=== PATIENT | male | born 1960 | race Caucasian/White ===

== ENCOUNTER 2016-10-17 06:24 | Emergency (ER) | payer MEDICARE, MEDICAID ==
[2016-10-17 06:42] VITALS: BP 153/81
[2016-10-17] MEDS ORDERED: Diphtheria,Pertussis(Acell),Tetanus Vaccine 0.5 ML SDV IM ONE (07:13)
[2016-10-17] MEDS ORDERED: Bacitracin Oint 1 GM U/D Packet TOP ONE (07:14)
--- NOTE | 2016-10-17 07:34 | EDM.PDOC ---
ED HPI GENERAL MEDICAL PROBLEM - General Chief Complaint: Laceration Stated Complaint: DEEP CUT IN LEFT HAND Time Seen by Provider: 10/17/16 07:12 Source of Information: Reports: Patient History Limitations: Reports: No Limitations - History of Present Illness INITIAL COMMENTS - FREE TEXT/NARRATIVE: Patient presented to the emergency room with a laceration of his left hand. He was cutting a hole was with a knife. The back slipped in a separate laceration 4 cm of the left hand. The patient requires primary closure. No other complications noted in the injury. Onset: Today Duration: Minutes: Location: Reports: Upper Extremity, Left Quality: Reports: Ache Severity: Mild Improves with: Reports: Other (Application of dressing) Worsens with: Reports: None Context: Reports: Activity Associated Symptoms: Reports: No Other Symptoms Treatments [employer]: Reports: Dressing(s) - Related Data Allergies Allergy/AdvReac Type Severity Reaction Status Date / Time clindamycin Allergy Hives Verified 10/17/16 06:38 Home Meds: Home Meds Levothyroxine Sodium [Synthroid] 225 mcg PO ACBREAKFAST 02/27/15 [History] Vitamin E 400 unit PO DAILY 06/11/15 [History] Past Medical History Cardiovascular History: Reports: Blood Clots/VTE/DVT Other Gastrointestinal History: Pancreatic tumor Other Genitourinary History: kidney canCer right nephrectomy 1991. Partial left nephrectomy Other Musculoskeletal History: dislocated right shoulder 1980 Neurological History: Reports: Neuropathy, Peripheral Endocrine/Metabolic History: Reports: Other (See Below) Other Endocrine/Metabolic History: thyroid cancer Oncologic (Cancer) History: Reports: Pancreatic, Thyroid, Other (See Below) Other Oncologic History: kidney - Infectious Disease History Infectious Disease History: Reports: Chicken Pox, Measles, Mumps - Past Surgical History GI Surgical History: Reports: Other (See Below) Other GI Surgeries/Procedures: splenectomy Social & Family History - Tobacco Use Smoking Status *Q: Never Smoker Second Hand Smoke Exposure: No - Caffeine Use Caffeine Use: Reports: None - Recreational Drug Use Recreational Drug Use: No ED ROS GENERAL - Review of Systems Review Of Systems: See Below Constitutional: Reports: No Symptoms HEENT: Reports: No Symptoms Respiratory: Reports: No Symptoms Cardiovascular: Reports: No Symptoms Endocrine: Reports: Fatigue GI/Abdominal: Reports: Abdominal Pain : Reports: Frequency, Urgency Musculoskeletal: Reports: Back Pain Skin: Reports: No Symptoms Neurological: Reports: No Symptoms Psychiatric: Reports: No Symptoms Hematologic/Lymphatic: Reports: No Symptoms ED EXAM, SKIN/RASH Exam: See Below Exam Limited By: No Limitations General Appearance: Alert, WD/WN, No Apparent Distress Eye Exam: Bilateral Eye: Normal Inspection Ears: Normal External Exam, Hearing Grossly Normal Nose: Normal Inspection Throat/Mouth: Normal Inspection, Normal Voice Head: Atraumatic, Normocephalic Neck: Normal Inspection Respiratory/Chest: No Respiratory Distress Cardiovascular: Normal Peripheral Pulses Extremities: Normal Inspection (With the exception of the laceration of the left hand) Neurological: Alert, Oriented Psychiatric: Normal Affect, Normal Mood Skin: Warm, Dry Location, Skin: Upper Extremity, Left, Palms Characteristics: Linear ED SKIN PROCEDURES - Laceration/Wound Repair Left Hand Lac/wound length in cm: 4 Appearance: Linear Distal NVT: neuro & vascular intact, no tendon injury Anesthetic Type: local Local anesthesia - Lidocaine (Xylocaine): 1% plain Local anesthetic volume: 3cc Skin prep: chlorhexidine (hibiciens), saline Exploration/Debridement/Repair: wound explored, no foreign material found Closed with: sutures Suture size: other (5-0 Ethilon) # of sutures: 3 Suture type: interrupted Sterile dressing applied: nurse Complications: No Course - Vital Signs Last Recorded V/S: Last Vital Signs Temp 97.1 F 10/17/16 06:41 Pulse 96 10/17/16 06:41 Resp 16 10/17/16 06:41 BP 153/81 H 10/17/16 06:41 Pulse Ox 98 10/17/16 06:41 - Orders/Labs/Meds Orders: Active Orders 24 hr Category Date Time Status Procedure Tray at Bedside [RC] ASDIRECTED Care 10/17/16 07:14 Ordered Vaccines to be Administered [RC] PER UNIT ROUTINE Care 10/17/16 07:13 Ordered Meds: Medications Discontinued Medications Generic Name Dose Route Start Last Admin Trade Name Freq PRN Reason Stop Dose Admin Bacitracin 1 dose 10/17/16 07:14 Bacitracin Oint 1 Gm TOP 10/17/16 07:15 ONETIME ONE Diphtheria/Tetanus/Acell Pertussis 0.5 ml 10/17/16 07:13 Adacel IM 10/17/16 07:14 .ONCE ONE Lidocaine HCl 5 ml 10/17/16 07:14 Xylocaine-Mpf 1% INJECT 10/17/16 07:15 ONETIME ONE Departure - Departure Time of Disposition: 07:35 Disposition: Home, Self-Care 01 Condition: good Clinical Impression: Laceration of left hand - Discharge Information Instructions: Laceration Care, Adult, [id number] Forms: ED Department Discharge Additional Instructions: Patient seen in the emergency room with laceration of left head. The laceration was repaired with multiple interrupted sutures of 5-0 Ethilon. The wound is cleansed with Hibiclens and saline. One percent Xylocaine was the anesthesia locally infiltrated Bacitracin Band-Aid applied. Patient's keep the wound clean dry and covered her knee unprocessed. Sutures can be removed in 7-10 days. Reevaluation is needed if any signs of infection develop. No antibodies prescribed. - Problem List & Annotations (1) Laceration of left hand SNOMED Code(s): 272294045 Code(s): S61.412A - LACERATION WITHOUT FOREIGN BODY OF LEFT HAND, INIT ENCNTR Status: Acute Priority: Medium Current Visit: Yes Qualifiers: Encounter type: initial encounter Foreign body presence: without foreign body Qualified Code(s): S61.412A - Laceration without foreign body of left hand, initial encounter - Problem List Review Problem List Initiated/Reviewed/Updated: Yes - My Orders Last 24 Hours: My Active Orders 10/17/16 07:13 Vaccines to be Administered [RC] PER UNIT ROUTINE 10/17/16 07:14 Procedure Tray at Bedside [RC] ASDIRECTED - Assessment/Plan Last 24 Hours: My Active Orders 10/17/16 07:13 Vaccines to be Administered [RC] PER UNIT ROUTINE 10/17/16 07:14 Procedure Tray at Bedside [RC] ASDIRECTED
== END 2016-10-17 07:46 | disposition home or self-care (01) ==
LOC: JP.ED 06:24
DX: S61.412A Laceration without foreign body of left hand, initial encounter (principal); Z23 Encounter for immunization; Z88.1 Allergy status to other antibiotic agents; Z79.899 Other long term (current) drug therapy; Z86.718 Personal history of other venous thrombosis and embolism; Z85.850 Personal history of malignant neoplasm of thyroid; Z85.07 Personal history of malignant neoplasm of pancreas; Z90.5 Acquired absence of kidney; Z90.81 Acquired absence of spleen; W26.0XXA Contact with knife, initial encounter
CPT/HCPCS: 12002; 90471; 90715; 99282-25; 99283-25; A4217

== ENCOUNTER 2016-10-25 22:18 | Inpatient (IN) | payer MEDICARE, MEDICAID ==
--- NOTE | 2016-10-25 23:29 | EDM.PDOC ---
[id number] 4d FEVER Time Seen by Provider: 10/25/16 23:15 Source of Information: Reports: Patient, Family History Limitations: Reports: No Limitations - History of Present Illness INITIAL COMMENTS - FREE TEXT/NARRATIVE: 56-year-old male with a history of several types of cancer including pancreatic cancer and kidney cancer, status post splenectomy, developed a sudden onset of chills and fever tonight while fishing. He has chronic lower extremity lymphedema, and developed sudden left leg pain at the same time he developed his fever. He has no shortness of breath, cough, sore throat, nausea or vomiting or abdominal pain. No exposure to other illness he knows of. Onset: Sudden (This evening) Location: Reports: Lower Extremity, Left, Lower Extremity, Right Severity: Moderate Associated Symptoms: Reports: Fever/Chills, Malaise. Denies: Nausea/Vomiting, Shortness of Breath, Weakness denies pain Pain Score (Numeric/FACES): 0 - Related Data Allergies Allergy/AdvReac Type Severity Reaction Status Date / Time clindamycin Allergy Hives Verified 10/25/16 23:53 Home Meds: Home Meds Levothyroxine Sodium [Synthroid] 225 mcg PO ACBREAKFAST 02/27/15 [History] Vitamin E 400 unit PO DAILY 06/11/15 [History] Past Medical History HEENT History: Reports: Impaired Vision Cardiovascular History: Reports: Blood Clots/VTE/DVT Gastrointestinal History: Reports: Other (See Below) Other Gastrointestinal History: Pancreatic tumor Genitourinary History: Reports: Other (See Below) Other Genitourinary History: kidney canCer right nephrectomy 1991. Partial left nephrectomy Other Musculoskeletal History: dislocated right shoulder 1980 Neurological History: Reports: Neuropathy, Peripheral Endocrine/Metabolic History: Reports: Obesity/BMI 30+, Other (See Below) Other Endocrine/Metabolic History: thyroid cancer. lymphedema Oncologic (Cancer) History: Reports: Pancreatic, Thyroid, Other (See Below) Other Oncologic History: kidney - Infectious Disease History Infectious Disease History: Reports: Chicken Pox, Measles, Mumps - Past Surgical History GI Surgical History: Reports: Other (See Below) Other GI Surgeries/Procedures: splenectomy Social & Family History - Tobacco Use Smoking Status *Q: Never Smoker Second Hand Smoke Exposure: No - Caffeine Use Caffeine Use: Reports: Soda, Tea - Recreational Drug Use Recreational Drug Use: No ED ROS GENERAL - Review of Systems Review Of Systems: See Below Constitutional: Reports: Fever, Chills, Malaise HEENT: Reports: No Symptoms Respiratory: Denies: Shortness of Breath, Cough Cardiovascular: Denies: Chest Pain, Palpitations GI/Abdominal: Denies: Abdominal Pain, Nausea, Vomiting : Reports: No Symptoms Skin: Reports: Other (Chronic lymphedema of both lower extremities, thickened skin, erythema and excoriations) Neurological: Denies: Difficulty Walking Psychiatric: Reports: No Symptoms ED EXAM, SEPSIS - Physical Exam Exam: See Below Exam Limited By: No Limitations General Appearance: Alert, No Apparent Distress Eye Exam: Bilateral Eye: Normal Inspection (No jaundice) Throat/Mouth: Normal Inspection Head: Atraumatic Neck: No: Lymphadenopathy (R), Lymphadenopathy (L) Respiratory/Chest: Lungs Clear Cardiovascular: Regular Rate, Rhythm, Tachycardia GI/Abdominal: Soft, Non-Tender Extremities: Pedal Edema (Extreme lower extremity edema, tight erythematous and warm skin bilaterally worse on the left. A few superficial excoriations on both feet, no weeping lesions.) Psychiatric: Normal Affect, Normal Mood Course - Vital Signs Last Recorded V/S: Last Vital Signs Temp 101.9 F H 10/26/16 05:52 Pulse 112 H 10/26/16 03:00 Resp 18 10/26/16 03:00 BP 115/57 L 10/26/16 03:00 Pulse Ox 93 L 10/26/16 03:00 - Orders/Labs/Meds Orders: Active Orders 24 hr Category Date Time Status CULTURE BLOOD [BC] Urgent Lab 10/25/16 23:35 Received CULTURE BLOOD [BC] Urgent Lab 10/25/16 23:45 Received Sodium Chloride 0.9% [Saline Flush] Med 10/25/16 23:31 Active 10 ml FLUSH ASDIRECTED PRN Blood Culture x2 Reflex Set [OM.PC] Urgent Oth 10/25/16 23:23 Ordered Saline Lock Insert [OM.PC] Routine Oth 10/25/16 23:31 Ordered Medication Orders Acetaminophen (Tylenol) 650 mg PO Q4H PRN PRN Reason: Pain (Mild 1-3)/fever Last Admin: 10/26/16 05:52 Dose: 650 mg Albuterol (Proventil Neb Soln) 2.5 mg NEB Q4H PRN PRN Reason: Shortness Of Breath/wheezing Docusate Sodium (Colace) 100 mg PO BID PRN PRN Reason: Constipation Piperacillin Sod/Tazobactam (Sod 3.375 gm/ Sodium Chloride) 50 mls @ 100 mls/ hr IV Q6H [facility] Last Admin: 10/26/16 05:46 Dose: 100 mls/hr Sodium Chloride (Normal Saline) 1,000 mls @ 125 mls/hr IV ASDIRECTED LISA Levothyroxine Sodium (Synthroid) 200 mcg PO ACBREAKFAST LISA Levothyroxine Sodium (Levothyroxine) 25 mcg PO ACBREAKFAST LISA Lorazepam (Ativan) 1 mg IV Q6H PRN PRN Reason: Nausea/Vomiting Morphine Sulfate (Morphine) 2 mg IVPUSH Q2H PRN PRN Reason: Pain (severe 7-10) Ondansetron HCl (Zofran Odt) 4 mg PO Q6H PRN PRN Reason: Nausea able to take PO Oxycodone HCl (Oxycodone) 5 mg PO Q4H PRN PRN Reason: Pain (moderate 4-6) Pantoprazole Sodium (Protonix Iv) 40 mg IV DAILY [facility] Sodium Chloride (Saline Flush) 10 ml FLUSH ASDIRECTED PRN PRN Reason: Keep Vein Open Last Admin: 10/26/16 00:14 Dose: 10 ml Vitamin E (Vitamin E) 400 units PO DAILY [facility] Zolpidem Tartrate (Ambien) 5 mg PO BEDTIME PRN PRN Reason: Sleep Labs: Laboratory Tests 10/25/16 10/25/16 10/25/16 Range/Units 23:35 23:35 23:35 WBC 18.5 H (4.5-11.0) K/uL RBC 4.66 (4.30-5.90) M/uL Hgb 12.9 (12.0-15.0) g/dL Hct 39.7 L (40.0-54.0) % MCV 85 (80-98) fL MCH 28 (27-31) pg MCHC 33 (32-36) % Plt Count 342 (150-400) K/uL Neut % (Auto) 78 H (36-66) % Lymph % (Auto) 9 L (24-44) % Evangeline % (Auto) 11 H (2-6) % Eos % (Auto) 2 (2-4) % Baso % (Auto) 0 (0-1) % Sodium 136 L (140-148) mmol/L Potassium 4.3 (3.6-5.2) mmol/L Chloride 101 (100-108) mmol/L Carbon Dioxide 29 (21-32) mmol/L Anion Gap 10.3 (5.0-14.0) mmol/L BUN 16 (7-18) mg/dL Creatinine 1.2 (0.8-1.3) mg/dL Est Cr Clr Drug Dosing 83.38 mL/min Estimated GFR (MDRD) > 60 (>60) Glucose 103 (74-106) mg/dL Lactic Acid 1.2 (0.4-2.0) mmol/L Calcium 8.1 L (8.5-10.1) mg/dL Total Bilirubin 0.9 (0.2-1.0) mg/dL AST 18 (15-37) U/L ALT 19 (12-78) U/L Alkaline Phosphatase 73 (46-116) U/L Total Protein 7.4 (6.4-8.2) g/dL Albumin 3.2 L (3.4-5.0) g/dL Globulin 4.2 H (2.3-3.5) g/dL Albumin/Globulin Ratio 0.8 L (1.2-2.2) Meds: Medications Generic Name Dose Route Start Last Admin Trade Name Freq PRN Reason Stop Dose Admin Acetaminophen 650 mg 10/26/16 01:18 10/26/16 05:52 Tylenol PO 650 mg Q4H PRN Administration Pain (Mild 1-3)/fever Albuterol 2.5 mg 10/26/16 01:18 Proventil Neb Soln NEB Q4H PRN Shortness Of Breath/wheezing Docusate Sodium 100 mg 10/26/16 01:18 Colace PO BID PRN Constipation Piperacillin Sod/Tazobactam 50 mls @ 100 mls/hr 10/26/16 06:00 10/26/16 05:46 Sod 3.375 gm/ Sodium Chloride IV 100 mls/hr Q6H LISA Administration Sodium Chloride 1,000 mls @ 125 mls/hr 10/26/16 01:18 Normal Saline IV ASDIRECTED LISA Levothyroxine Sodium 200 mcg 10/26/16 07:30 Synthroid PO ACBREAKFAST [facility] Levothyroxine Sodium 25 mcg 10/26/16 07:30 Levothyroxine PO ACBREAKFAST LISA Lorazepam 1 mg 10/26/16 01:18 Ativan IV Q6H PRN Nausea/Vomiting Morphine Sulfate 2 mg 10/26/16 01:18 Morphine IVPUSH Q2H PRN Pain (severe 7-10) Ondansetron HCl 4 mg 10/26/16 01:18 Zofran Odt PO Q6H PRN Nausea able to take PO Oxycodone HCl 5 mg 10/26/16 01:18 Oxycodone PO Q4H PRN Pain (moderate 4-6) Pantoprazole Sodium 40 mg 10/26/16 09:00 Protonix Iv IV DAILY [facility] Sodium Chloride 10 ml 10/25/16 23:31 10/26/16 00:14 Saline Flush FLUSH 10 ml ASDIRECTED PRN Administration Keep Vein Open Vitamin E 400 units 10/26/16 09:00 Vitamin E PO DAILY [facility] Zolpidem Tartrate 5 mg 10/26/16 01:18 Ambien PO BEDTIME PRN Sleep Discontinued Medications Generic Name Dose Route Start Last Admin Trade Name Freq PRN Reason Stop Dose Admin Acetaminophen 500 mg 10/26/16 00:06 10/26/16 00:11 Tylenol Extra Strength PO 10/26/16 00:07 500 mg ONETIME ONE Administration Piperacillin Sod/Tazobactam 50 mls @ 100 mls/hr 10/25/16 23:42 10/26/16 00:02 Sod 3.375 gm/ Sodium Chloride IV 10/26/16 00:11 100 mls/hr ONETIME ONE Administration - Re-Assessments/Exams Free Text/Narrative Re-Assessment/Exam: 10/25/16 23:32 This patient presents with a strong possibility of early sepsis. The source may be the lower extremities. Blood cultures will be obtained, CBC, CMP, lactic acid and an IV started. 10/26/16 00:36 White count was 18,500, lactic acid was normal an extended chemistry profile is reassuring. Patient continued to chill and spike fevers. I asked Mar Laws of the hospitalist service to evaluate the patient for admission for IV antibiotics Departure - Departure Time of Disposition: 01:39 Disposition: Admitted As Inpatient 65 Condition: fair Clinical Impression: Cellulitis of leg, left, Acquired asplenia Fever Qualifiers: Fever type: due to other condition Qualified Code(s): R50.81 - Fever presenting with conditions classified elsewhere - Discharge Information - My Orders Last 24 Hours: My Active Orders 10/25/16 23:23 Blood Culture x2 Reflex Set [OM.PC] Urgent 10/25/16 23:31 Sodium Chloride 0.9% [Saline Flush] 10 ml FLUSH ASDIRECTED PRN Saline Lock Insert [OM.PC] Routine 10/25/16 23:35 CULTURE BLOOD [BC] Urgent 10/25/16 23:45 CULTURE BLOOD [BC] Urgent - Assessment/Plan Last 24 Hours: My Active Orders 10/25/16 23:23 Blood Culture x2 Reflex Set [OM.PC] Urgent 10/25/16 23:31 Sodium Chloride 0.9% [Saline Flush] 10 ml FLUSH ASDIRECTED PRN Saline Lock Insert [OM.PC] Routine 10/25/16 23:35 CULTURE BLOOD [BC] Urgent 10/25/16 23:45 CULTURE BLOOD [BC] Urgent
[2016-10-25] MEDS ORDERED: Sodium Chloride 0.9% 10 ML Syringe FLUSH PRN (23:31)
[2016-10-25] MEDS ORDERED: Piperacillin/Tazobactam 3.375 GM in Sodium Chloride 0.9% 50 ML IV ONE (23:42)
[2016-10-26] MEDS ORDERED: Acetaminophen 500 MG Tab PO ONE (00:06)
--- NOTE | 2016-10-26 01:05 | PCM.HP ---
H&P History of Present Illness - General Date of Service: 10/25/16 Admit Problem/Dx: Admission Diagnosis/Problem Admission Diagnosis/Problem Cellulitis and abscess of lower extremity Source of Information: Patient History Limitations: Reports: No Limitations - History of Present Illness Initial Comments - Free Text/Narative: - General Chief Complaint: Fever Stated Complaint: FEVER Time Seen by Provider: 10/25/16 23:15 Source of Information: Reports: Patient, Family History Limitations: Reports: No Limitations - History of Present Illness INITIAL COMMENTS - FREE TEXT/NARRATIVE: 56-year-old male with a history of several types of cancer including pancreatic cancer and kidney cancer, status post splenectomy, developed a sudden onset of chills and fever tonight while fishing. He has chronic lower extremity lymphedema, and developed sudden left leg pain at the same time he developed his fever. He has no shortness of breath, cough, sore throat, nausea or vomiting or abdominal pain. No exposure to other illness he knows of. Onset: Sudden (This evening) Location: Reports: Lower Extremity, Left, Lower Extremity, Right Severity: Moderate Associated Symptoms: Reports: Fever/Chills, Malaise. Denies: Nausea/Vomiting, Shortness of Breath, Weakness denies pain 10/25/16 23:32 This patient presents with a strong possibility of early sepsis. The source may be the lower extremities. Blood cultures will be obtained, CBC, CMP, lactic acid and an IV started. 10/26/16 00:36 White count was 18,500, lactic acid was normal an extended chemistry profile is reassuring. Patient continued to chill and spike fevers. I asked Mar Trejo of the hospitalist service to evaluate the patient for admission for IV antibiotics Onset of Symptoms: Reports: Sudden Duration of Symptoms: Reports: Hour(s): Location: Reports: Generalized Quality: Reports: Same as Previous Episode Severity: Moderate Improves with: Reports: None Worsens with: Reports: None Associated Symptoms: Reports: Fever/Chills denies pain Pain Score (Numeric/FACES): 0 - Related Data Allergies/Adverse Reactions: Allergies Allergy/AdvReac Type Severity Reaction Status Date / Time clindamycin Allergy Hives Verified 10/25/16 23:53 Home Medications: Home Meds Levothyroxine Sodium [Synthroid] 225 mcg PO ACBREAKFAST 02/27/15 [History] Vitamin E 400 unit PO DAILY 06/11/15 [History] Past Medical History HEENT History: Reports: Impaired Vision Cardiovascular History: Reports: Blood Clots/VTE/DVT Gastrointestinal History: Reports: Other (See Below) Other Gastrointestinal History: Pancreatic tumor Genitourinary History: Reports: Other (See Below) Other Genitourinary History: kidney canCer right nephrectomy 1991. Partial left nephrectomy Other Musculoskeletal History: dislocated right shoulder 1980 Neurological History: Reports: Neuropathy, Peripheral Endocrine/Metabolic History: Reports: Obesity/BMI 30+, Other (See Below) Other Endocrine/Metabolic History: thyroid cancer. lymphedema Oncologic (Cancer) History: Reports: Pancreatic, Thyroid, Other (See Below) Other Oncologic History: kidney - Infectious Disease History Infectious Disease History: Reports: Chicken Pox, Measles, Mumps - Past Surgical History GI Surgical History: Reports: Other (See Below) Other GI Surgeries/Procedures: splenectomy Social & Family History - Tobacco Use Smoking Status *Q: Never Smoker Second Hand Smoke Exposure: No - Caffeine Use Caffeine Use: Reports: Soda, Tea - Recreational Drug Use Recreational Drug Use: No H&P Review of Systems - Review of Systems: Review Of Systems: See Below General: Reports: Fever, Chills, Fatigue HEENT: Reports: Other (dry mouth) Pulmonary: Reports: No Symptoms Cardiovascular: Reports: No Symptoms Gastrointestinal: Reports: No Symptoms Genitourinary: Reports: No Symptoms Musculoskeletal: Reports: Other (chronic leg pain) Skin: Reports: Erythema (bilateral lower legs), Change in Color (bilateral lower legs) Psychiatric: Reports: No Symptoms Neurological: Reports: No Symptoms Hematologic/Lymphatic: Reports: No Symptoms Immunologic: Reports: No Symptoms Exam - Exam Exam: See Below - Vital Signs Vital Signs: Last Vital Signs Temp 38.7 C H 10/25/16 22:38 Pulse 119 H 10/25/16 22:38 Resp 18 10/25/16 22:38 BP 168/90 H 10/25/16 22:38 Pulse Ox 99 10/25/16 22:38 Weight: 164.2 kg - Exam Quality Assessment: Skin Breakdown General: Alert, Oriented, 4 HEENT: PERRLA, Conjunctiva Clear, EACs Clear, EOMI, Hearing Intact, Nares Patent , Normal Nasal Septum, Posterior Pharynx Clear, TMs Clear, Other (tongue dry) Neck: Supple, Trachea Midline Lungs: Clear to Auscultation, Normal Respiratory Effort Abdomen: Normal Bowel Sounds, Soft (Male) Exam: Deferred Rectal (Males) Exam: Deferred Back Exam: Normal Inspection, Full Range of Motion, NT Extremities: Edema (legs bilateral edema 3+), Increased Warmth Skin: Warm, Dry, Rash (bilateral lower legs) Neurological: Strength Equal Bilateral Neuro Extensive - Mental Status: Alert, Oriented x3, Normal Mood/Affect, Normal Cognition Psychiatric: Alert, Normal Affect, Normal Mood - Patient Data Lab Results last 24 hrs: Laboratory Results - last 24 hr 10/25/16 10/25/16 10/25/16 Range/Units 23:35 23:35 23:35 WBC 18.5 H (4.5-11.0) K/uL RBC 4.66 (4.30-5.90) M/uL Hgb 12.9 (12.0-15.0) g/dL Hct 39.7 L (40.0-54.0) % MCV 85 (80-98) fL MCH 28 (27-31) pg MCHC 33 (32-36) % Plt Count 342 (150-400) K/uL Neut % (Auto) 78 H (36-66) % Lymph % (Auto) 9 L (24-44) % [place] % (Auto) 11 H (2-6) % Eos % (Auto) 2 (2-4) % Baso % (Auto) 0 (0-1) % Sodium 136 L (140-148) mmol/L Potassium 4.3 (3.6-5.2) mmol/L Chloride 101 (100-108) mmol/L Carbon Dioxide 29 (21-32) mmol/L Anion Gap 10.3 (5.0-14.0) mmol/L BUN 16 (7-18) mg/dL Creatinine 1.2 (0.8-1.3) mg/dL Est Cr Clr Drug Dosing 83.38 mL/min Estimated GFR (MDRD) > 60 (>60) Glucose 103 (74-106) mg/dL Lactic Acid 1.2 (0.4-2.0) mmol/L Calcium 8.1 L (8.5-10.1) mg/dL Total Bilirubin 0.9 (0.2-1.0) mg/dL AST 18 (15-37) U/L ALT 19 (12-78) U/L Alkaline Phosphatase 73 (46-116) U/L Total Protein 7.4 (6.4-8.2) g/dL Albumin 3.2 L (3.4-5.0) g/dL Globulin 4.2 H (2.3-3.5) g/dL Albumin/Globulin Ratio 0.8 L (1.2-2.2) Result Diagrams: 10/25/16 23:35 10/25/16 23:35 *Q Meaningful Use (ADM) - VTE *Q VTE Criteria *Q: - Stroke *Q Stroke Criteria *Q: - AMI *Q AMI Criteria *Q: - Problem List (1) Cellulitis of both lower extremities SNOMED Code(s): 962883201 ICD Code: L03.115 - CELLULITIS OF RIGHT LOWER LIMB; L03.116 - CELLULITIS OF LEFT LOWER LIMB Status: Acute Priority: High Current Visit: Yes (2) Cancer of multiple primary sites SNOMED Code(s): 390341734, 949910073 ICD Code: C80.0 - DISSEMINATED MALIGNANT NEOPLASM, UNSPECIFIED Status: Acute Priority: Medium Current Visit: Yes (3) Acquired asplenia SNOMED Code(s): 553764391 ICD Code: Z90.81 - ACQUIRED ABSENCE OF SPLEEN Status: Acute Priority: Medium Current Visit: Yes (4) Impaired glucose regulation SNOMED Code(s): 990103708 ICD Code: R73.09 - OTHER ABNORMAL GLUCOSE Status: Acute Priority: Medium Current Visit: Yes Problem List Initiated/Reviewed/Updated: Yes Orders Last 24hrs: Active Orders 24 hr Category Date Time Status Patient Status Manage Transfer [TRANSFER] Routine ADT 10/26/16 00:46 Ordered CULTURE BLOOD [BC] Urgent Lab 10/25/16 23:35 Received CULTURE BLOOD [BC] Urgent Lab 10/25/16 23:45 Received Sodium Chloride 0.9% [Saline Flush] Med 10/25/16 23:31 Active 10 ml FLUSH ASDIRECTED PRN Blood Culture x2 Reflex Set [OM.PC] Urgent Oth 10/25/16 23:23 Ordered Saline Lock Insert [OM.PC] Routine Oth 10/25/16 23:31 Ordered Resuscitation Status Routine Resus Stat 10/26/16 00:47 Ordered Medication Orders Sodium Chloride (Saline Flush) 10 ml FLUSH ASDIRECTED PRN PRN Reason: Keep Vein Open Last Admin: 10/26/16 00:14 Dose: 10 ml Assessment/Plan Comment:: ASSESSMENT / PLAN: History of Present Illness; cellultis 56-year-old male with a history of several types of cancer including pancreatic cancer and kidney cancer, status post splenectomy, developed a sudden onset of chills and fever tonight while fishing. He has chronic lower extremity lymphedema, and developed sudden left leg pain at the same time he developed his fever. He has no shortness of breath, cough, sore throat, nausea or vomiting or abdominal pain. No exposure to other illness he knows of. Onset: Sudden (This evening) Location: Reports: Lower Extremity, Left, Lower Extremity, Right Severity: Moderate Associated Symptoms: Reports: Fever/Chills, Malaise. Denies: Nausea/Vomiting, Shortness of Breath, Weakness denies pain This patient presents with a strong possibility of early sepsis. The source may be the lower extremities. Blood cultures will be obtained, CBC, CMP, lactic acid and an IV started. White count was 18,500, lactic acid was normal an extended chemistry profile is reassuring. Patient continued to chill and spike fevers. I asked Mar Trejo of the hospitalist service to evaluate the patient for admission for IV antibiotics. Plan Celulitis; bilateral Lower Extremeties -Admit to [address] [place] [address] for further monitoring -IV Fluids for rehydration NS at 125 mL per hour -IV Antibiotic; Zoysn 3.375mg IV every 6 hours -Advise to notify nurses of any chest pain or other symptoms -blood cultures x2 pending -And a.m. labs: CBC, BMP, lactic acid Hypothyroidism -Synthyroid 225mg po daily, unable to take generic Multi Cancers; pancreatic, thyroid, kidney -follow holistic diet and life style -vitamin ordered Impaired Glucose vs Diabetes -blood glucose monitor before meals and at bedtimes -may need to consider low dose sliding scale coverage Maintenance issues -Orders home meds: -Nutrition: Regular diet -Arroyo catheter not indicated at this time -DVT: SCD -PPI; IV Protonix 40mg daily CODE STATUS: Full Admission status: Admit to [address] [place] [address] Admission justification. This patient will be admitted for inpatient services and is medically appropriate meeting medical necessity for inpatient admission as outlined in my documentation. I reasonably expect the patient will require inpatient services that span. Time over 2 midnights. I reasonably expect this patient to be discharged or transferred within 96 hours after admission to the critical access hospital. Disposition; home Primary care provider: KADEEM Brower Hospitalist: Dr. Marin
[2016-10-26] MEDS ORDERED: Docusate Sodium 100 MG Cap PO PRN (01:18)
[2016-10-26] MEDS ORDERED: Albuterol 0.083% 2.5 MG/3 ML Neb Soln NEB PRN (01:18)
[2016-10-26] MEDS ORDERED: Sodium Chloride 0.9% 1,000 ML IV SCH (01:18)
[2016-10-26] MEDS ORDERED: Morphine 2 MG/ML Syringe IVPUSH PRN (01:18)
[2016-10-26] MEDS ORDERED: LORazepam 2 MG/ML MDV IV PRN (01:18)
[2016-10-26] MEDS ORDERED: Zolpidem 5 MG Tab PO PRN (01:18)
[2016-10-26] MEDS ORDERED: Ondansetron 4 MG Tab.DIS PO PRN (01:18)
[2016-10-26] MEDS ORDERED: oxyCODONE 5 MG Tab PO PRN (01:18)
[2016-10-26] MEDS: Acetaminophen 325 MG Tab PO PRN ×2 (05:52→23:03)
[2016-10-26] MEDS ORDERED: Piperacillin/Tazobactam 3.375 GM in Sodium Chloride 0.9% 50 ML IV SCH (06:00)
[2016-10-26] MEDS ORDERED: Levothyroxine 25 MCG Tab PO SCH (07:30)
[2016-10-26] MEDS ORDERED: Pantoprazole 40 MG Tab.CR PO SCH (07:30)
[2016-10-26] MEDS ORDERED: Levothyroxine 100 MCG Tab PO SCH (07:30)
[2016-10-26] MEDS ORDERED: Vitamin E (dl-alpha-tocopherol acetate) 400 Unit Cap PO SCH (09:00)
[2016-10-26] MEDS ORDERED: Pantoprazole 40 MG Vial IV SCH (09:00)
[2016-10-26] MEDS ORDERED: SODIUM CHLORIDE 0.9% IV ONE (09:30)
[2016-10-26] MEDS ORDERED: VANCOMYCIN IV ONE (09:30)
[2016-10-26] MEDS: Ibuprofen 600 MG Tab PO PRN (10:05)
--- NOTE | 2016-10-26 12:33 | PCM.PN ---
- General Info Date of Service: 10/26/16 Functional Status: Reports: pain controlled, tolerating diet, ambulating - Review of Systems General: Reports: Fever Musculoskeletal: Reports: leg pain Skin: Reports: rash Systems Review Comment:: No acute events since admission. Still febrile this morning. Left leg feels better with less pain. He doesn't think the swelling is any different this morning than yesterday. Vital signs have otherwise been stable. He is interested in getting up to walk around. - Patient Data Vitals - most recent: Last Vital Signs Temp 38.2 C H 10/26/16 11:05 Pulse 105 H 10/26/16 10:47 Resp 18 10/26/16 10:47 BP 145/77 H 10/26/16 10:47 Pulse Ox 96 10/26/16 10:47 Weight - most recent: 164.2 kg I&O - last 24 hours: Intake & Output 10/25/16 10/26/16 10/26/16 22:59 06:59 14:59 Intake Total 354 240 Output Total 525 500 Balance -171 -260 Lab Results last 24 hrs: Laboratory Results - last 24 hr 10/26/16 10/26/16 10/26/16 Range/Units 01:38 05:58 05:58 WBC 18.5 H (4.5-11.0) K/uL RBC 4.42 (4.30-5.90) M/uL Hgb 12.3 (12.0-15.0) g/dL Hct 37.5 L (40.0-54.0) % MCV 85 (80-98) fL MCH 28 (27-31) pg MCHC 33 (32-36) % Plt Count 358 (150-400) K/uL Neut % (Auto) 79 H (36-66) % Lymph % (Auto) 7 L (24-44) % [place] % (Auto) 13 H (2-6) % Eos % (Auto) 1 L (2-4) % Baso % (Auto) 0 (0-1) % Sodium 139 L (140-148) mmol/L Potassium 4.3 (3.6-5.2) mmol/L Chloride 103 (100-108) mmol/L Carbon Dioxide 27 (21-32) mmol/L Anion Gap 13.3 (5.0-14.0) mmol/L BUN 15 (7-18) mg/dL Creatinine 1.3 (0.8-1.3) mg/dL Est Cr Clr Drug Dosing 76.97 mL/min Estimated GFR (MDRD) 57 L (>60) Glucose 129 H (74-106) mg/dL Lactic Acid (0.4-2.0) mmol/L Calcium 8.1 L (8.5-10.1) mg/dL Urine Color Yellow Urine Appearance Clear Urine pH 6.0 (4.5-8.0) Ur Specific [place] 1.015 (1.008-1.030) Urine Protein Trace (NEGATIVE) mg/dL Urine Glucose (UA) Normal (NEGATIVE) mg/dL Urine Ketones Negative (NEGATIVE) mg/dL Urine Occult Blood Large (NEGATIVE) Urine Nitrite Negative (NEGAITVE) Urine Bilirubin Negative (NEGATIVE) Urine Urobilinogen Normal (NORMAL) mg/dL Ur Leukocyte Esterase Negative (NEGATIVE) Urine RBC 10-20 H (0-5) Urine WBC 0-5 (0-5) Ur Epithelial Cells Few Amorphous Sediment Not seen Urine Bacteria Few Urine Mucus Not seen 10/26/16 Range/Units 05:58 WBC (4.5-11.0) K/uL RBC (4.30-5.90) M/uL Hgb (12.0-15.0) g/dL Hct (40.0-54.0) % MCV (80-98) fL MCH (27-31) pg MCHC (32-36) % Plt Count (150-400) K/uL Neut % (Auto) (36-66) % Lymph % (Auto) (24-44) % [place] % (Auto) (2-6) % Eos % (Auto) (2-4) % Baso % (Auto) (0-1) % Sodium (140-148) mmol/L Potassium (3.6-5.2) mmol/L Chloride (100-108) mmol/L Carbon Dioxide (21-32) mmol/L Anion Gap (5.0-14.0) mmol/L BUN (7-18) mg/dL Creatinine (0.8-1.3) mg/dL Est Cr Clr Drug Dosing mL/min Estimated GFR (MDRD) (>60) Glucose (74-106) mg/dL Lactic Acid 1.5 (0.4-2.0) mmol/L Calcium (8.5-10.1) mg/dL Urine Color Urine Appearance Urine pH (4.5-8.0) Ur Specific [place] (1.008-1.030) Urine Protein (NEGATIVE) mg/dL Urine Glucose (UA) (NEGATIVE) mg/dL Urine Ketones (NEGATIVE) mg/dL Urine Occult Blood (NEGATIVE) Urine Nitrite (NEGAITVE) Urine Bilirubin (NEGATIVE) Urine Urobilinogen (NORMAL) mg/dL Ur Leukocyte Esterase (NEGATIVE) Urine RBC (0-5) Urine WBC (0-5) Ur Epithelial Cells Amorphous Sediment Urine Bacteria Urine Mucus Med Orders - Current: Current Medications Acetaminophen (Tylenol) 650 mg PO Q4H PRN PRN Reason: Pain (Mild 1-3)/fever Last Admin: 10/26/16 05:52 Dose: 650 mg Albuterol (Proventil Neb Soln) 2.5 mg NEB Q4H PRN PRN Reason: Shortness Of Breath/wheezing Docusate Sodium (Colace) 100 mg PO BID PRN PRN Reason: Constipation Sodium Chloride (Normal Saline) 1,000 mls @ 125 mls/hr IV ASDIRECTED [facility] Last Admin: 10/26/16 10:05 Dose: 125 mls/hr Piperacillin/Tazobactam/ (Dextrose 3.375 gm/ Premix) 50 mls @ 100 mls/hr IV Q6H [facility] Vancomycin HCl 2 gm/ Sodium (Chloride) 500 mls @ 250 mls/hr IV Q12H [facility] Ibuprofen (Motrin) 600 mg PO Q6H PRN PRN Reason: Pain/Fever Last Admin: 10/26/16 10:05 Dose: 600 mg Levothyroxine Sodium 200 mcg/ (Levothyroxine Sodium 25 mcg) 225 mcg PO DAILY@ 0730 [facility] Last Admin: 10/26/16 09:59 Dose: 50 mcg Lorazepam (Ativan) 1 mg IV Q6H PRN PRN Reason: Nausea/Vomiting Morphine Sulfate (Morphine) 2 mg IVPUSH Q2H PRN PRN Reason: Pain (severe 7-10) Ondansetron HCl (Zofran Odt) 4 mg PO Q6H PRN PRN Reason: Nausea able to take PO Oxycodone HCl (Oxycodone) 5 mg PO Q4H PRN PRN Reason: Pain (moderate 4-6) Pantoprazole Sodium (Protonix) 40 mg PO ACBREAKFAST [facility] Last Admin: 10/26/16 08:59 Dose: Not Given Sodium Chloride (Saline Flush) 10 ml FLUSH ASDIRECTED PRN PRN Reason: Keep Vein Open Last Admin: 10/26/16 00:14 Dose: 10 ml Vitamin E (Vitamin E) 400 units PO DAILY [facility] Last Admin: 10/26/16 08:59 Dose: Not Given Zolpidem Tartrate (Ambien) 5 mg PO BEDTIME PRN PRN Reason: Sleep Discontinued Medications Acetaminophen (Tylenol Extra Strength) 500 mg PO ONETIME ONE Stop: 10/26/16 00:07 Last Admin: 10/26/16 00:11 Dose: 500 mg Piperacillin Sod/Tazobactam (Sod 3.375 gm/ Sodium Chloride) 50 mls @ 100 mls/ hr IV ONETIME ONE Stop: 10/26/16 00:11 Last Admin: 10/26/16 00:02 Dose: 100 mls/hr Piperacillin Sod/Tazobactam (Sod 3.375 gm/ Sodium Chloride) 50 mls @ 100 mls/ hr IV Q6H [facility] Last Admin: 10/26/16 05:46 Dose: 100 mls/hr Vancomycin HCl 3 gm/ Sodium (Chloride) 500 mls @ 167 mls/hr IV ONETIME ONE Stop: 10/26/16 12:29 Last Admin: 10/26/16 09:59 Dose: 167 mls/hr Pantoprazole Sodium (Protonix Iv) 40 mg IV DAILY LISA - Exam Quality Assessment: No: supplemental oxygen General: alert, oriented, cooperative, no acute distress Neck: supple Lungs: Normal respiratory effort Abdomen: soft, no distension Extremities: no cyanosis, edema (pitting edema/lymphedema both lower legs to the knee, L>R) Skin: warm, dry, rash (erythema both lower legs from foot to near the knee, L>R) Psy/Mental Status: alert, normal affect - Problem List Review Problem List Initiated/Reviewed/Updated: Yes - My Orders Last 24 Hours: My Active Orders 10/26/16 08:29 Ibuprofen [Motrin] 600 mg PO Q6H PRN 10/26/16 21:00 Vancomycin 2 gm Sodium Chloride 0.9% [Normal Saline] 500 ml IV Q12H 10/27/16 05:00 BASIC METABOLIC PANEL,BMP [CHEM] Timed CBC W/O DIFF,HEMOGRAM [HEME] Timed (1) - Plan Plan:: ASSESSMENT / PLAN: Celulitis; bilateral Lower Extremeties - complicating chronic lymphedema of both legs, left is more impressive than the right and he thinks this is the painful and more swollen leg. Still febrile this morning, does not have good staph coverage at this time. No history of MRA that I'm aware of but with previous hospitalizations it is possible. -Gentle IV fluids -continue Pip/Tazo, add vancomycin -Pain control -Follow-up cultures -Labs in the morning Hypothyroidism -Synthyroid 225mg po daily, unable to take generic Multi Cancers; pancreatic, thyroid, kidney -follow holistic diet and life style -vitamin ordered Impaired Glucose vs Diabetes -blood glucose monitor before meals and at bedtimes -may need to consider low dose sliding scale coverage Maintenance issues -Nutrition: Regular diet -DVT: SCD -PPI; not indicated Disposition; anticipate discharged home after the hospital stay Dario Marin M.D.
[2016-10-26] MEDS: Piperacillin/Tazobactam/Dext 3.375 GM in Premix Bag 1 BAG IV SCH ×2 (13:43→17:38)
[2016-10-26] MEDS: Vancomycin 2 GM in Sodium Chloride 0.9% 500 ML IV SCH (22:25)
[2016-10-26] MEDS ORDERED: Mineral Oil 10 ML Bottle TOP PRN (22:48)
[2016-10-27] MEDS: Piperacillin/Tazobactam/Dext 3.375 GM in Premix Bag 1 BAG IV SCH ×3 (00:40→12:32)
[2016-10-27] MEDS: Vancomycin 2 GM in Sodium Chloride 0.9% 500 ML IV SCH (10:21)
--- NOTE | 2016-10-27 12:53 | PCM.PN ---
- General Info Date of Service: 10/27/16 Functional Status: Reports: pain controlled, tolerating diet - Review of Systems Cardiovascular: Reports: Edema Systems Review Comment:: No acute events overnight. Left lower leg pain has continued to improve. Right leg swelling and redness are better. Left leg appears preseptal or 2 yesterday. Patient has been up and walking around. He is not having any fevers. Cultures are negative so far. - Patient Data Vitals - most recent: Last Vital Signs Temp 37.7 C 10/27/16 12:00 Pulse 88 10/27/16 12:00 Resp 16 10/27/16 12:00 BP 133/76 10/27/16 12:00 Pulse Ox 96 10/27/16 12:00 Weight - most recent: 164.2 kg I&O - last 24 hours: Intake & Output 10/26/16 10/27/16 10/27/16 22:59 06:59 14:59 Intake Total 1505 1350 1030 Output Total 1450 300 Balance 1505 -100 730 Lab Results last 24 hrs: Laboratory Results - last 24 hr 10/27/16 10/27/16 Range/Units 05:00 05:00 WBC 14.0 H (4.5-11.0) K/uL RBC 4.49 (4.30-5.90) M/uL Hgb 12.3 (12.0-15.0) g/dL Hct 38.5 L (40.0-54.0) % MCV 86 (80-98) fL MCH 27 (27-31) pg MCHC 32 (32-36) % Plt Count 328 (150-400) K/uL Sodium 143 (140-148) mmol/L Potassium 4.0 (3.6-5.2) mmol/L Chloride 108 (100-108) mmol/L Carbon Dioxide 27 (21-32) mmol/L Anion Gap 7.8 (5.0-14.0) mmol/L BUN 13 (7-18) mg/dL Creatinine 1.3 (0.8-1.3) mg/dL Est Cr Clr Drug Dosing 76.94 mL/min Estimated GFR (MDRD) 57 L (>60) Glucose 107 H (74-106) mg/dL Calcium 7.9 L (8.5-10.1) mg/dL Med Orders - Current: Current Medications Acetaminophen (Tylenol) 650 mg PO Q4H PRN PRN Reason: Pain (Mild 1-3)/fever Last Admin: 10/26/16 23:03 Dose: 650 mg Albuterol (Proventil Neb Soln) 2.5 mg NEB Q4H PRN PRN Reason: Shortness Of Breath/wheezing Docusate Sodium (Colace) 100 mg PO BID PRN PRN Reason: Constipation Piperacillin/Tazobactam/ (Dextrose 3.375 gm/ Premix) 50 mls @ 100 mls/hr IV Q6H [facility] Last Admin: 10/27/16 12:32 Dose: 100 mls/hr Vancomycin HCl 2 gm/ Sodium (Chloride) 500 mls @ 250 mls/hr IV Q12H [facility] Last Admin: 10/27/16 10:21 Dose: 250 mls/hr Sodium Chloride (Normal Saline) 1,000 mls @ 25 mls/hr IV ASDIRECTED [facility] Ibuprofen (Motrin) 600 mg PO Q6H PRN PRN Reason: Pain/Fever Last Admin: 10/26/16 10:05 Dose: 600 mg Levothyroxine Sodium 200 mcg/ (Levothyroxine Sodium 25 mcg) 225 mcg PO DAILY@ 0730 [facility] Last Admin: 10/27/16 10:23 Dose: 225 mcg Lorazepam (Ativan) 1 mg IV Q6H PRN PRN Reason: Nausea/Vomiting Mineral Oil (Muri-Lube) 15 ml TOP DAILY PRN PRN Reason: lymphedema Morphine Sulfate (Morphine) 2 mg IVPUSH Q2H PRN PRN Reason: Pain (severe 7-10) Ondansetron HCl (Zofran Odt) 4 mg PO Q6H PRN PRN Reason: Nausea able to take PO Oxycodone HCl (Oxycodone) 5 mg PO Q4H PRN PRN Reason: Pain (moderate 4-6) Sodium Chloride (Saline Flush) 10 ml FLUSH ASDIRECTED PRN PRN Reason: Keep Vein Open Last Admin: 10/26/16 00:14 Dose: 10 ml Zolpidem Tartrate (Ambien) 5 mg PO BEDTIME PRN PRN Reason: Sleep Discontinued Medications Acetaminophen (Tylenol Extra Strength) 500 mg PO ONETIME ONE Stop: 10/26/16 00:07 Last Admin: 10/26/16 00:11 Dose: 500 mg Piperacillin Sod/Tazobactam (Sod 3.375 gm/ Sodium Chloride) 50 mls @ 100 mls/ hr IV ONETIME ONE Stop: 10/26/16 00:11 Last Admin: 10/26/16 00:02 Dose: 100 mls/hr Piperacillin Sod/Tazobactam (Sod 3.375 gm/ Sodium Chloride) 50 mls @ 100 mls/ hr IV Q6H [facility] Last Admin: 10/26/16 05:46 Dose: 100 mls/hr Sodium Chloride (Normal Saline) 1,000 mls @ 125 mls/hr IV ASDIRECTED [facility] Last Admin: 10/26/16 10:05 Dose: 125 mls/hr Vancomycin HCl 3 gm/ Sodium (Chloride) 500 mls @ 167 mls/hr IV ONETIME ONE Stop: 10/26/16 12:29 Last Admin: 10/26/16 09:59 Dose: 167 mls/hr Pantoprazole Sodium (Protonix Iv) 40 mg IV DAILY [facility] Pantoprazole Sodium (Protonix) 40 mg PO ACBREAKFAST [facility] Last Admin: 10/26/16 08:59 Dose: Not Given Vitamin E (Vitamin E) 400 units PO DAILY [facility] Last Admin: 10/26/16 08:59 Dose: Not Given - Exam Quality Assessment: No: supplemental oxygen General: alert, oriented, cooperative, no acute distress Neck: supple Lungs: Normal respiratory effort Cardiovascular: Regular Rate, Regular Rhythm Abdomen: soft, no distension Extremities: no cyanosis, edema (Pitting edema of both lower legs, left greater than right) Skin: warm, dry, rash (Erythema of right ankle area which is relatively mild and improved. Chronic venous stasis changes of the left lower leg from just below the knee to the foot. Still some erythema and warmth of most of the lower leg on the left) Psy/Mental Status: alert, normal affect - Problem List Review Problem List Initiated/Reviewed/Updated: Yes - My Orders Last 24 Hours: My Active Orders 10/26/16 21:00 Vancomycin 2 gm Sodium Chloride 0.9% [Normal Saline] 500 ml IV Q12H 10/26/16 22:48 Mineral Oil [Muri-Lube] 15 ml TOP DAILY PRN 10/27/16 14:00 ceFAZolin [Ancef] 2 gm Sodium Chloride 0.9% [Normal Saline] 50 ml IV Q8HR 10/27/16 16:30 Sodium Chloride 0.9% [Normal Saline] 1,000 ml IV ASDIRECTED 10/28/16 05:00 CBC W/O DIFF,HEMOGRAM [HEME] Timed (1) - Plan Plan:: ASSESSMENT / PLAN: Celulitis; bilateral Lower Extremeties - complicating chronic lymphedema of both legs, left is more impressive than the right. Pain has improved. He is not having fevers at this time. Cultures are negative. -Gentle IV fluids -Change antibiotics to cefazolin -Plan to transition to cephalexin at the time of discharge -Pain control -Follow-up cultures -Labs in the morning Hypothyroidism -Synthyroid 225mg po daily, unable to take generic Multi Cancers; pancreatic, thyroid, kidney -follow holistic diet and life style -vitamin ordered Impaired Glucose vs Diabetes -blood glucose monitor before meals and at bedtimes -may need to consider low dose sliding scale coverage Maintenance issues -Nutrition: Regular diet -DVT: SCD -PPI; not indicated Disposition; anticipate discharged home after the hospital stay, hopefully tomorrow if stable overnight Dario Marin M.D.
[2016-10-27] MEDS: ceFAZolin 2 GM in Sodium Chloride 0.9% 50 ML IV SCH ×2 (14:46→21:42)
[2016-10-27] MEDS ORDERED: Sodium Chloride 0.9% 1,000 ML IV SCH (15:00)
[2016-10-28] MEDS: Ibuprofen 600 MG Tab PO PRN (00:01)
[2016-10-28] MEDS: Acetaminophen 325 MG Tab PO PRN (03:59)
[2016-10-28] MEDS: ceFAZolin 2 GM in Sodium Chloride 0.9% 50 ML IV SCH (05:20)
[2016-10-28] MEDS ORDERED: Pneumococcal Polyvalent-23 Vaccine 0.5 ML SDV IM ONE (09:00)
--- NOTE | 2016-10-28 11:28 | PCM.DCSUM1 ---
Discharge Summary - Hospital Course Brief History: 56-year-old male with history of lymphedema of the legs who presents with left leg pain, swelling and redness. He was admitted for management of cellulitis - Discharge Data Discharge Date: 10/28/16 Discharge Disposition: Home, Self-Care 01 Condition: Good - Discharge Diagnosis/Problem(s) (1) Cellulitis of leg, left SNOMED Code(s): 872914902 ICD Code: L03.116 - CELLULITIS OF LEFT LOWER LIMB Status: Acute - Patient Summary/Data Hospital Course: Ba presented to the emergency room with left leg pain, swelling and redness. He is admitted to the hospital for management of left leg colitis. Initially he was started on Pip/Tazo and cultures were collected. With persistent fevers the morning after admission vancomycin was added. his temperature curve slowly improved as did his redness, swelling and pain in the left leg. Pain was well- controlled utilizing only acetaminophen. No MRSA was isolated at 48 hours so I elected to transition him to cefazolin. he remained afebrile for the 24 hours following initiation of cefazolin. His pain, redness and swelling have improved significantly. All of his cultures have been negative. He feels well enough to be safe at home at this time. I believe he is safe for discharge home with normalization of his fevers and white blood cell count. I did recommend 10 additional days of antibiotic therapy with cephalexin. He will be taking this 3 times daily with food. He would benefit from clinic followup next week to ensure that it continues to improve. He will be taking a probiotic twice daily while he is on antibiotics. - Patient Instructions Diet: Regular Diet as Tolerated Activity: As Tolerated Driving: May Drive Today Showering/Bathing: May Shower Notify Provider of: Fever, Increased Pain, Swelling and Redness, Drainage, Nausea and/or Vomiting Other/Special Instructions: 1. You were in the hospital for management of cellulitis involving her left leg. This has been improving with antibiotic therapy. I recommend 10 additional days of antibiotic therapy with cephalexin ( Keflex) to help ensure that this infection resolves. You should continue to elevate your legs periodically to help with the swelling. I would recommend probiotics twice daily while you're on antibiotics. You should take your antibiotics with food to minimize stomach upset. 2. Please seek medical attention if you develop fever greater than 101, have worsening of the swelling and/or pain in your left leg or you have persistent vomiting or diarrhea. - Discharge Plan Prescriptions/Med Rec: Cephalexin 500 mg PO TID #32 capsule Home Medications: Home Meds Levothyroxine Sodium [Synthroid] 225 mcg PO ACBREAKFAST 02/27/15 [History] Vitamin E 400 unit PO DAILY 06/11/15 [History] Cephalexin 500 mg PO TID #32 capsule 10/28/16 [Rx] Patient Handouts: Cellulitis, Adult Referrals: Yoel Albarran PA-C [Primary Care Provider] - (f/u 1-2 weeks - followup hospital stay for left leg cellulitis) - Discharge Summary/Plan Comment DC Time >30 min.: No (25) - Patient Data Vitals - Most Recent: Last Vital Signs Temp 37.1 C 10/28/16 07:15 Pulse 78 10/28/16 07:15 Resp 18 10/28/16 07:15 BP 156/88 H 10/28/16 07:15 Pulse Ox 95 10/28/16 07:15 Weight - Most Recent: 164.2 kg I&O - Last 24 hours: Intake & Output 10/27/16 10/28/16 10/28/16 22:59 06:59 14:59 Intake Total 1042 338 700 Output Total 450 800 200 Balance 592 -462 500 Lab Results - Last 24 hrs: Laboratory Results - last 24 hr 10/28/16 Range/Units 05:51 WBC 12.8 H (4.5-11.0) K/uL RBC 4.31 (4.30-5.90) M/uL Hgb 11.7 L (12.0-15.0) g/dL Hct 37.0 L (40.0-54.0) % MCV 86 (80-98) fL MCH 27 (27-31) pg MCHC 32 (32-36) % Plt Count 349 (150-400) K/uL Med Orders - Current: Current Medications Acetaminophen (Tylenol) 650 mg PO Q4H PRN PRN Reason: Pain (Mild 1-3)/fever Last Admin: 10/28/16 03:59 Dose: 650 mg Albuterol (Proventil Neb Soln) 2.5 mg NEB Q4H PRN PRN Reason: Shortness Of Breath/wheezing Docusate Sodium (Colace) 100 mg PO BID PRN PRN Reason: Constipation Sodium Chloride (Normal Saline) 1,000 mls @ 25 mls/hr IV ASDIRECTED [facility] Last Admin: 10/27/16 14:55 Dose: 25 mls/hr Cefazolin Sodium 2 gm/ Sodium (Chloride) 50 mls @ 100 mls/hr IV Q8HR [facility] Last Admin: 10/28/16 05:20 Dose: 100 mls/hr Ibuprofen (Motrin) 600 mg PO Q6H PRN PRN Reason: Pain/Fever Last Admin: 10/28/16 00:01 Dose: 600 mg Levothyroxine Sodium 200 mcg/ (Levothyroxine Sodium 25 mcg) 225 mcg PO DAILY@ 0730 [facility] Last Admin: 10/28/16 08:13 Dose: 225 mcg Lorazepam (Ativan) 1 mg IV Q6H PRN PRN Reason: Nausea/Vomiting Mineral Oil (Muri-Lube) 15 ml TOP DAILY PRN PRN Reason: lymphedema Morphine Sulfate (Morphine) 2 mg IVPUSH Q2H PRN PRN Reason: Pain (severe 7-10) Ondansetron HCl (Zofran Odt) 4 mg PO Q6H PRN PRN Reason: Nausea able to take PO Oxycodone HCl (Oxycodone) 5 mg PO Q4H PRN PRN Reason: Pain (moderate 4-6) Sodium Chloride (Saline Flush) 10 ml FLUSH ASDIRECTED PRN PRN Reason: Keep Vein Open Last Admin: 10/26/16 00:14 Dose: 10 ml Zolpidem Tartrate (Ambien) 5 mg PO BEDTIME PRN PRN Reason: Sleep Discontinued Medications Acetaminophen (Tylenol Extra Strength) 500 mg PO ONETIME ONE Stop: 10/26/16 00:07 Last Admin: 10/26/16 00:11 Dose: 500 mg Piperacillin Sod/Tazobactam (Sod 3.375 gm/ Sodium Chloride) 50 mls @ 100 mls/ hr IV ONETIME ONE Stop: 10/26/16 00:11 Last Admin: 10/26/16 00:02 Dose: 100 mls/hr Piperacillin Sod/Tazobactam (Sod 3.375 gm/ Sodium Chloride) 50 mls @ 100 mls/ hr IV Q6H [facility] Last Admin: 10/26/16 05:46 Dose: 100 mls/hr Sodium Chloride (Normal Saline) 1,000 mls @ 125 mls/hr IV ASDIRECTED [facility] Last Admin: 10/26/16 10:05 Dose: 125 mls/hr Piperacillin/Tazobactam/ (Dextrose 3.375 gm/ Premix) 50 mls @ 100 mls/hr IV Q6H [facility] Last Admin: 10/27/16 12:32 Dose: 100 mls/hr Vancomycin HCl 3 gm/ Sodium (Chloride) 500 mls @ 167 mls/hr IV ONETIME ONE Stop: 10/26/16 12:29 Last Admin: 10/26/16 09:59 Dose: 167 mls/hr Vancomycin HCl 2 gm/ Sodium (Chloride) 500 mls @ 250 mls/hr IV Q12H [facility] Last Admin: 10/27/16 10:21 Dose: 250 mls/hr Pantoprazole Sodium (Protonix Iv) 40 mg IV DAILY [facility] Pantoprazole Sodium (Protonix) 40 mg PO ACBREAKFAST [facility] Last Admin: 10/26/16 08:59 Dose: Not Given Pneumococcal Polyvalent Vaccine (Pneumovax 23) 0.5 ml IM .ONCE ONE Stop: 10/28/16 09:01 Last Admin: 10/28/16 11:21 Dose: 0.5 ml Vitamin E (Vitamin E) 400 units PO DAILY [facility] Last Admin: 10/26/16 08:59 Dose: Not Given *Q Meaningful Use (DIS) - VTE *Q VTE Criteria *Q: - Stroke *Q Stroke Criteria *Q: - AMI *Q AMI Criteria *Q:
[2016-10-28 11:44] VITALS: BP 159/87
== END 2016-10-28 12:21 | disposition home or self-care (01) | DRG 603 ==
LOC: JP.ED 22:18 → JP.MS 10-26 00:46
PROVIDERS: ADMIT Internal Medicine; ATTEND Internal Medicine
DX: L03.116 Cellulitis of left lower limb (principal); C25.9 Malignant neoplasm of pancreas, unspecified; Z68.41 Body mass index [BMI] 40.0-44.9, adult; Z86.718 Personal history of other venous thrombosis and embolism; R50.9 Fever, unspecified; I89.0 Lymphedema, not elsewhere classified; E03.9 Hypothyroidism, unspecified; R73.09 Other abnormal glucose; Z85.850 Personal history of malignant neoplasm of thyroid; Z85.528 Personal history of other malignant neoplasm of kidney; Z90.81 Acquired absence of spleen; H54.7 Unspecified visual loss; Z90.5 Acquired absence of kidney; Z88.1 Allergy status to other antibiotic agents; E66.9 Obesity, unspecified; Z23 Encounter for immunization
CPT/HCPCS: 36415; 80053; 85025; 87040 ×2; 96365; 99284; A9270; J2543; J7050 ×2; 80048; 81001; 82962; 83605; 85027; 90732; 99285; G0009; J0690; J3370; J7040

== ENCOUNTER 2016-11-14 23:12 | Emergency (ER) | payer MEDICARE, MEDICAID ==
[2016-11-14 23:48] VITALS: BP 150/86
[2016-11-15] MEDS ORDERED: Doxycycline 100 MG Cap PO ONE (00:33)
--- NOTE | 2016-11-15 02:06 | EDM.PDOC ---
ED HPI GENERAL MEDICAL PROBLEM - General Chief Complaint: Skin Complaint Stated Complaint: RASH Time Seen by Provider: 11/15/16 00:25 Source of Information: Reports: Patient History Limitations: Reports: No Limitations - History of Present Illness INITIAL COMMENTS - FREE TEXT/NARRATIVE: This patient complains of a skin rash which started on his lower extremities earlier today he's has some on his arms a little bit on his chest. It does not itch. He denies any fever chills nausea vomiting diarrhea he denies body aches. He does have peripheral neuropathy of the legs it bothers him quite a bit but that's unchanged today. He notes he was bitten by a tick about a week ago. denies Pain Score (Numeric/FACES): 0 - Related Data Allergies Allergy/AdvReac Type Severity Reaction Status Date / Time clindamycin Allergy Hives Verified 11/14/16 23:53 Home Meds: Home Meds Levothyroxine Sodium [Synthroid] 225 mcg PO ACBREAKFAST 02/27/15 [History] Vitamin E 400 unit PO DAILY 06/11/15 [History] Past Medical History HEENT History: Reports: Impaired Vision Cardiovascular History: Reports: Blood Clots/VTE/DVT Gastrointestinal History: Reports: Other (See Below) Other Gastrointestinal History: Pancreatic tumor Genitourinary History: Reports: Other (See Below) Other Genitourinary History: kidney canCer right nephrectomy 1991. Partial left nephrectomy Other Musculoskeletal History: dislocated right shoulder 1980 Neurological History: Reports: Neuropathy, Peripheral Endocrine/Metabolic History: Reports: Obesity/BMI 30+, Other (See Below) Other Endocrine/Metabolic History: thyroid cancer. lymphedema Oncologic (Cancer) History: Reports: Pancreatic, Thyroid, Other (See Below) Other Oncologic History: kidney Dermatologic History: Reports: Cellulitis - Infectious Disease History Infectious Disease History: Reports: Chicken Pox, Measles, Mumps - Past Surgical History GI Surgical History: Reports: Other (See Below) Other GI Surgeries/Procedures: splenectomy Dermatological Surgical History: Reports: Skin Graft Social & Family History - Family History Family Medical History: Noncontributory - Tobacco Use Smoking Status *Q: Never Smoker Used Tobacco, but Quit: Yes Month Tobacco Last Used: march 2005 Second Hand Smoke Exposure: No - Caffeine Use Caffeine Use: Reports: Soda, Tea - Alcohol Use Days Per Week of Alcohol Use: 0 - Recreational Drug Use Recreational Drug Use: No ED ROS GENERAL - Review of Systems Review Of Systems: ROS reveals no pertinent complaints other than HPI. ED EXAM, SKIN/RASH Exam: See Below Exam Limited By: No Limitations General Appearance: Alert, Other (Chronically ill appearing) Eye Exam: Bilateral Eye: PERRL (Conjunctiva are normal) Throat/Mouth: Normal Oropharynx Head: Atraumatic Respiratory/Chest: Lungs Clear Cardiovascular: Regular Rate, Rhythm GI/Abdominal: Non-Tender Neurological: Alert, Oriented Psychiatric: Normal Affect Skin: Warm, Dry, Petechiae (He has had a lot of petechiae to the lower extremities. There are less petechiae to his arms. Rare petechiae to the chest and back.) Course - Vital Signs Last Recorded V/S: Last Vital Signs Temp 36.9 C 11/15/16 00:00 Pulse 101 H 11/15/16 00:00 Resp 16 11/15/16 00:00 BP 150/86 H 11/15/16 00:00 Pulse Ox 99 11/15/16 00:00 - Orders/Labs/Meds Orders: Active Orders 24 hr Category Date Time Status CULTURE BLOOD [BC] Urgent Lab 11/15/16 00:40 Received CULTURE BLOOD [BC] Urgent Lab 11/15/16 00:45 Received EHRLICHIA CHAFFEENSIS, IGG&IGM [REF] Stat Lab 11/15/16 00:45 Received GEORGE MTN SPOTTED FEVER IGG/M [REF] Stat Lab 11/15/16 00:45 Received Blood Culture x2 Reflex Set [OM.PC] Urgent Oth 11/15/16 00:30 Ordered Labs: Laboratory Tests 11/15/16 11/15/16 Range/Units 00:40 00:40 WBC 9.9 (4.5-11.0) K/uL RBC 4.88 (4.30-5.90) M/uL Hgb 13.3 (12.0-15.0) g/dL Hct 41.7 (40.0-54.0) % MCV 86 (80-98) fL MCH 27 (27-31) pg MCHC 32 (32-36) % Plt Count 502 H (150-400) K/uL Neut % (Auto) 49 (36-66) % Lymph % (Auto) 30 (24-44) % [place] % (Auto) 13 H (2-6) % Eos % (Auto) 6 H (2-4) % Baso % (Auto) 2 H (0-1) % Sodium 139 L (140-148) mmol/L Potassium 4.4 (3.6-5.2) mmol/L Chloride 101 (100-108) mmol/L Carbon Dioxide 31 (21-32) mmol/L Anion Gap 11.4 (5.0-14.0) mmol/L BUN 22 H D (7-18) mg/dL Creatinine 1.3 (0.8-1.3) mg/dL Est Cr Clr Drug Dosing 74.93 mL/min Estimated GFR (MDRD) 57 L (>60) Glucose 100 (74-106) mg/dL Calcium 8.7 (8.5-10.1) mg/dL Total Bilirubin 0.6 (0.2-1.0) mg/dL AST 30 (15-37) U/L ALT 31 (12-78) U/L Alkaline Phosphatase 69 (46-116) U/L Total Protein 7.9 (6.4-8.2) g/dL Albumin 3.0 L (3.4-5.0) g/dL Globulin 4.9 H (2.3-3.5) g/dL Albumin/Globulin Ratio 0.6 L (1.2-2.2) Meds: Medications Discontinued Medications Generic Name Dose Route Start Last Admin Trade Name Freq PRN Reason Stop Dose Admin Doxycycline Hyclate 200 mg 11/15/16 00:33 11/15/16 00:43 Vibramycin PO 11/15/16 00:34 200 mg ONETIME ONE Administration - Re-Assessments/Exams Free Text/Narrative Re-Assessment/Exam: 11/15/16 02:29 The patient left the ER just recently with a prescription for doxycycline. I called him on his cell phone and asked him to come back to the emergency department later today in the afternoon just for recheck. 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 Departure - Departure Time of Disposition: 02:04 Disposition: Home, Self-Care 01 Condition: Fair Clinical Impression: Petechial rash - Discharge Information Instructions: Rash Referrals: Deion,Yoel C, PA-C [Primary Care Provider] - Forms: ED Department Discharge Additional Instructions: Take doxycycline 100 mg twice daily for 10 days. A test was sent for Lyme disease, Ehrlichiosis, and [place] spotted fever. The doxycycline will treat all of these diseases. Follow-up with your doctor on Wednesday or Wednesday. If you feel like you're getting worse before then, return to the emergency department. Avoid taking any aspirin Motrin Aleve and so forth. These medications could make the rash worse. If you're getting a fever be sure to return to the ER. - My Orders Last 24 Hours: My Active Orders 11/15/16 00:30 Blood Culture x2 Reflex Set [OM.PC] Urgent 11/15/16 00:40 CULTURE BLOOD [BC] Urgent 11/15/16 00:45 CULTURE BLOOD [BC] Urgent EHRLICHIA CHAFFEENSIS, IGG&IGM [REF] Stat GEORGE MTN SPOTTED FEVER IGG/M [REF] Stat - Assessment/Plan Last 24 Hours: My Active Orders 11/15/16 00:30 Blood Culture x2 Reflex Set [OM.PC] Urgent 11/15/16 00:40 CULTURE BLOOD [BC] Urgent 11/15/16 00:45 CULTURE BLOOD [BC] Urgent EHRLICHIA CHAFFEENSIS, IGG&IGM [REF] Stat GEORGE MTN SPOTTED FEVER IGG/M [REF] Stat
== END 2016-11-15 02:34 | disposition home or self-care (01) ==
LOC: JP.ED 23:12
DX: R23.3 Spontaneous ecchymoses (principal); E66.9 Obesity, unspecified; H54.7 Unspecified visual loss; Z88.1 Allergy status to other antibiotic agents; Z98.890 Other specified postprocedural states; Z68.42 Body mass index [BMI] 45.0-49.9, adult; Z90.81 Acquired absence of spleen
CPT/HCPCS: 36415; 80053; 85025; 86666; 87040; 99283; A9270; 86757; 86757-59

== ENCOUNTER 2019-12-12 04:15 | Emergency (ER) | payer MEDICARE, MEDICAID ==
--- NOTE | 2019-12-12 05:15 | EDM.PDOC ---
<Augusto Singh - Last Filed: 12/12/19 06:51> ED HPI GENERAL MEDICAL PROBLEM - General Chief Complaint: Respiratory Problem Stated Complaint: BLOOD CLOTS Time Seen by Provider: 12/12/19 04:50 Source of Information: Reports: Patient History Limitations: Reports: No Limitations - History of Present Illness INITIAL COMMENTS - FREE TEXT/NARRATIVE: Patient been doing considerable driving in a car. Late last week noted knots in his legs which he thought were blood clots. Responded by increasing his dose of vitamin E. Painful knots seem to go away but then over the weekend he developed shortness of breath which gradually got worse. Has also had chest discomfort which he relates as being similar to when he has had pulmonary emboli in the past. Not complaining of chest discomfort at this time. Onset Date: 12/09/19 Duration: Getting Worse Location: Reports: Chest Quality: Reports: Pressure Severity: Moderate Improves with: Reports: Rest Worsens with: Reports: Movement Context: Reports: Exercise Associated Symptoms: Reports: Chest Pain, Shortness of Breath. 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) (Vitamin E) Lower Abdomen Pain Score (Numeric/FACES): 2 Chest Pain Score (Numeric/FACES): 0 - Related Data Allergies Allergy/AdvReac Type Severity Reaction Status Date / Time clindamycin Allergy Hives Verified 12/12/19 04:34 Home Meds: Home Meds Levothyroxine Sodium [Synthroid] 300 mcg PO ACBREAKFAST 02/27/15 [History] Vitamin E 400 unit PO DAILY 06/11/15 [History] Past Medical History HEENT History: Reports: Impaired Vision Cardiovascular History: Reports: Blood Clots/VTE/DVT Respiratory History: Reports: PE Gastrointestinal History: Reports: Other (See Below) Other Gastrointestinal History: Pancreatic tumor Genitourinary History: Reports: Other (See Below) Other Genitourinary History: kidney canCer right nephrectomy 1991. Partial left nephrectomy Other Musculoskeletal History: dislocated right shoulder 1980 Neurological History: Reports: Neuropathy, Peripheral Endocrine/Metabolic History: Reports: Obesity/BMI 30+, Other (See Below) Other Endocrine/Metabolic History: thyroid cancer. lymphedema Oncologic (Cancer) History: Reports: Pancreatic, Renal, Thyroid, Other (See Below) Other Oncologic History: kidney Dermatologic History: Reports: Cellulitis - Infectious Disease History Infectious Disease History: Reports: Chicken Pox, Measles, Mumps - Past Surgical History GI Surgical History: Reports: Other (See Below) Other GI Surgeries/Procedures: splenectomy. Remove tail end of pancreas. Total nephrectomy and partial removal of another kidney for kidney cancer Dermatological Surgical History: Reports: Skin Graft Social & Family History - Family History Family Medical History: Noncontributory - Tobacco Use Smoking Status *Q: Never Smoker Second Hand Smoke Exposure: No - Caffeine Use Caffeine Use: Reports: Coffee, Soda - Alcohol Use Days Per Week of Alcohol Use: 2 Number of Drinks Per Day: 2 Total Drinks Per Week: 4 - Recreational Drug Use Recreational Drug Use: No ED ROS GENERAL - Review of Systems Review Of Systems: See Below Constitutional: Reports: Weakness, Fatigue. Denies: Fever HEENT: Reports: No Symptoms Respiratory: Reports: Shortness of Breath, Pleuritic Chest Pain. Denies: Wheezing Cardiovascular: Reports: Dyspnea on Exertion, Edema, PND Endocrine: Reports: Other (Marked obesity) GI/Abdominal: Denies: Abdominal Pain Neurological: Reports: No Symptoms Psychiatric: Reports: No Symptoms Hematologic/Lymphatic: Reports: No Symptoms (Previously been anticoagulated with Coumadin. Has stopped his anticoagulation by himself and now takes vitamin E instead) ED EXAM, GENERAL - Physical Exam Exam: See Below Exam Limited By: No Limitations General Appearance: Alert, Anxious, Moderate Distress, Obese Head: Atraumatic Neck: Normal Inspection Respiratory/Chest: Normal Breath Sounds, Respiratory Distress (Difficulty finishing complete sentences). No: Rales, Wheezing Cardiovascular: No Murmur, Tachycardia GI/Abdominal: Soft, Distended Back Exam: Normal Inspection, Full Range of Motion Extremities: Pedal Edema. No: Norma's Sign Neurological: Alert, Oriented Psychiatric: Normal Affect, Normal Mood Skin Exam: Warm, Dry EKG INTERPRETATION EKG Date: 12/12/19 Time: 05:10 Rhythm: NSR P-Wave: Present QRS: Normal ST-T: Normal Course - Vital Signs Text/Narrative:: Patient initially is with mild hypoxia and tachycardia. Has history of pulmonary embolus but also several different types of cancer. Differential diagnosis includes: pulmonary embolus, NH, congestive heart failure, metastatic lung disease, pneumonia, pulmonary edema. 06:05: Both troponin and d-dimer have returned significantly elevated. Patient has creatinine of 1.5. We'll bolus him with 1 L of IV fluid prior to CT scan in order to protect his kidneys. We'll administer aspirin for NH. Initial systolic blood pressure was in the 120s but subsequently systolic has been in the 90s so will not administer nitroglycerin at this time. Departure - Departure Disposition: DC/Tfer to [facility] 02 Clinical Impression: NSTEMI (non-ST elevated myocardial infarction), Pulmonary embolism, bilateral - Discharge Information Referrals: PCP,None [Primary Care Provider] - Forms: ED Department Discharge Care Plan Goals: Patient will be heparinized, and sent to [facility] for intensive care treatment of numerous pulmonary emboli and right heart strain, dyspnea, and possible cardiology consultation as well due to elevated troponin. Sepsis Event Note (ED) - Evaluation Sepsis Screening Result: No Definite Risk <Caden Brambila - Last Filed: 12/12/19 09:49> Course - Vital Signs Last Recorded V/S: Last Vital Signs Temp 98.4 F 12/12/19 05:45 Pulse 98 12/12/19 07:00 Resp 16 12/12/19 07:00 BP 127/77 12/12/19 07:00 Pulse Ox 92 L 12/12/19 07:00 - Orders/Labs/Meds Orders: Active Orders 24 hr Category Date Time Status EKG Documentation Completion [RC] ASDIRECTED Care 12/12/19 05:10 Active EKG 12 Lead [EK] Urgent Ther 12/12/19 05:09 Ordered Labs: Laboratory Tests 12/12/19 12/12/19 12/12/19 Range/Units 04:55 04:55 04:55 WBC 14.8 H (4.5-11.0) K/uL RBC 4.65 (4.30-5.90) M/uL Hgb 12.8 (12.0-15.0) g/dL Hct 40.0 (40.0-54.0) % MCV 86 (80-98) fL MCH 28 (27-31) pg MCHC 32 (32-36) % Plt Count 278 (150-400) K/uL Neut % (Auto) 63 (36-66) % Lymph % (Auto) 19 L (24-44) % [place] % (Auto) 13 H (2-6) % Eos % (Auto) 4 (2-4) % Baso % (Auto) 1 (0-1) % PT 11.3 (9.5-12.0) sec INR 1.04 (0.80-1.20) D-Dimer, Quantitative 2660 H (0.0-400.0) ng/mL Sodium (140-148) mmol/L Potassium (3.6-5.2) mmol/L Chloride (100-108) mmol/L Carbon Dioxide (21-32) mmol/L Anion Gap (5.0-14.0) mmol/L BUN (7-18) mg/dL Creatinine (0.8-1.3) mg/dL Est Cr Clr Drug Dosing mL/min Estimated GFR (MDRD) (>60) Glucose (74-106) mg/dL Calcium (8.5-10.1) mg/dL Total Bilirubin (0.2-1.0) mg/dL AST (15-37) U/L ALT (12-78) U/L Alkaline Phosphatase (46-116) U/L Troponin I (0.000-0.056) ng/mL NT-Pro-B Natriuret Pep (5-125) pg/mL Total Protein (6.4-8.2) g/dL Albumin (3.4-5.0) g/dL Globulin (2.3-3.5) g/dL Albumin/Globulin Ratio (1.2-2.2) 12/12/19 12/12/19 12/12/19 Range/Units 04:55 04:55 04:55 WBC (4.5-11.0) K/uL RBC (4.30-5.90) M/uL Hgb (12.0-15.0) g/dL Hct (40.0-54.0) % MCV (80-98) fL MCH (27-31) pg MCHC (32-36) % Plt Count (150-400) K/uL Neut % (Auto) (36-66) % Lymph % (Auto) (24-44) % [place] % (Auto) (2-6) % Eos % (Auto) (2-4) % Baso % (Auto) (0-1) % PT (9.5-12.0) sec INR (0.80-1.20) D-Dimer, Quantitative (0.0-400.0) ng/mL Sodium 138 L (140-148) mmol/L Potassium 4.3 (3.6-5.2) mmol/L Chloride 101 (100-108) mmol/L Carbon Dioxide 26 (21-32) mmol/L Anion Gap 15.3 H (5.0-14.0) mmol/L BUN 22 H (7-18) mg/dL Creatinine 1.5 H (0.8-1.3) mg/dL Est Cr Clr Drug Dosing 60.89 mL/min Estimated GFR (MDRD) 48 L (>60) Glucose 121 H (74-106) mg/dL Calcium 8.4 L (8.5-10.1) mg/dL Total Bilirubin 1.1 H D (0.2-1.0) mg/dL AST 18 (15-37) U/L ALT 20 (12-78) U/L Alkaline Phosphatase 67 (46-116) U/L Troponin I 0.158 H* (0.000-0.056) ng/mL NT-Pro-B Natriuret Pep 4004 H (5-125) pg/mL Total Protein 7.0 (6.4-8.2) g/dL Albumin 3.0 L (3.4-5.0) g/dL Globulin 4.0 H (2.3-3.5) g/dL Albumin/Globulin Ratio 0.8 L (1.2-2.2) Meds: Medications Discontinued Medications Generic Name Dose Route Start Last Admin Trade Name Scottq PRN Reason Stop Dose Admin Aspirin 324 mg 12/12/19 05:52 12/12/19 05:59 Aspirin PO 12/12/19 05:53 324 mg ONETIME ONE Administration Heparin Sodium (Porcine) 5,000 units 12/12/19 07:37 12/12/19 07:45 Heparin Sodium IVPUSH 12/12/19 07:38 5,000 units ONETIME ONE Administration Sodium Chloride 1,000 mls @ 1,000 mls/hr 12/12/19 06:00 12/12/19 06:02 Normal Saline IV 1,000 mls/hr ASDIRECTED LISA Administration Sodium Chloride 100 mls @ 3 mls/sec 12/12/19 07:15 12/12/19 07:21 Normal Saline IV 4 mls/sec ASDIRECTED LISA Administration Heparin Sodium/Dextrose 25,000 units in 500 mls @ 20 mls/hr 12/12/19 07:45 12/12/19 07:44 Heparin 25,000 Units In D5w 500 Ml IV 1,000 units/hr TITRATE LISA 20 mls/hr Administration Protocol 1,000 UNITS/HR Iopamidol 100 ml 12/12/19 07:15 12/12/19 07:20 Isovue-370 (76%) IV 100 ml . DIRECTED LISA Administration Nitroglycerin 0.4 mg 12/12/19 05:53 Nitrostat SL Q5M PRN Chest Pain Sodium Chloride 10 ml 12/12/19 07:06 12/12/19 07:20 Saline Flush FLUSH 12/12/19 07:07 10 ml ONETIME ONE Administration - Re-Assessments/Exams Free Text/Narrative Re-Assessment/Exam: 12/12/19 07:51 Care was turned over from Dr. Singh pending chest CT. Chest CT was positive for significant PE load with evidence of right heart strain. 5000 units of heparin was given as a bolus and he will be continued on 1000 units an hour, and arrangements for transfer to [facility] were made with the patient accepted by Dr. Woodward at 7:40 AM. Patient continued to be stable. Departure - Departure Time of Disposition: 08:26 Sepsis Event Note (ED) - Focused Exam Vital Signs: Vital Signs Temp Pulse Resp BP Pulse Ox 12/12/19 07:00 98 16 127/77 92 L 12/12/19 05:45 98.4 F 104 H 17 95/61 96 12/12/19 05:15 98.2 F 111 H 16 117/67 97 12/12/19 04:33 98.3 F 109 H 21 H 133/78 94 L
[2019-12-12] MEDS ORDERED: Aspirin 81 MG Tab.Chew PO ONE (05:52)
[2019-12-12] MEDS ORDERED: Nitroglycerin 0.4 MG Tab.SL SL PRN (05:53)
[2019-12-12] MEDS ORDERED: Sodium Chloride 0.9% 1,000 ML IV SCH (06:00)
[2019-12-12] MEDS ORDERED: Sodium Chloride 0.9% 10 ML Syringe FLUSH ONE (07:06)
[2019-12-12] MEDS ORDERED: Iopamidol 755 Mg/ML 100 ML Bottle IV SCH (07:15)
[2019-12-12] MEDS ORDERED: Sodium Chloride 0.9% 100 ML IV SCH (07:15)
[2019-12-12] MEDS ORDERED: Heparin Sodium 5,000 Units/ML Vial IVPUSH ONE (07:37)
[2019-12-12] MEDS ORDERED: Heparin Sodium/D5W 25,000 UNITS/500 ML BAG IV SCH (07:45)
--- NOTE | 2019-12-12 07:52 | CRLCT ---
INDICATION: Chest pain and dyspnea COMPARISON: None TECHNIQUE: : CT examination of the chest was performed with the uneventful intravenous administration of 100 cc of Isovue 370 while thin axial sections were obtained from above the apices of the lungs to the lung bases. Please note that all CT scans at this facility use dose modulation, iterative reconstruction, and/or weight-based dosing when appropriate to reduce radiation dose to as low as reasonably achievable. FINDINGS: : HEART and MEDIASTINUM: The heart size is normal. There is no mediastinal or hilar adenopathy or mass. There is no pericardial effusion. PULMONARY ARTERIAL CIRCULATION: Very large clot burden pulmonary embolus with clot involving all lobes. The RV to LV ratio is 1.5 with greater than 0.9 considers significantly abnormal. This is an indication of degree of right heart strain and clot burden. LUNGS: Moderate upper lobe predominant paraseptal greater than central lobular emphysema. Linear areas of atelectasis. PLEURAL SPACES: There is no pleural effusion, pneumothorax or pleural based mass. VISUALIZED UPPER ABDOMEN: Status post left nephrectomy. Prominent left adrenal but no definite focal mass. Limited visualized upper abdominal structures appear normal. OSSEOUS STRUCTURES: Age-appropriate appearance. No acute fracture or destructive process. TUBES and LINES: None. IMPRESSION: 1. Very large clot burden pulmonary embolus involving all lobes. Significantly abnormal RV/LV ratio of 1.5. 2. Emphysema. Atelectasis. 3. Status post left nephrectomy. 4. I discussed the above findings with Dr. Tab Brambila at 7:45 a.m. on December 12, [address] note that all [address] scans at this facility use dose modulation, iterative reconstruction, and/or weight-based dosing when appropriate to reduce radiation dose to as low as reasonably achievable. Dictated by Klaus Sutherland MD @ Dec 12 2019 7:41AM Signed by Dr. Klaus Sutherland @ Dec 12 2019 7:51AM
[2019-12-12 08:30] VITALS: BP 127/77; PULSE 98
== END 2019-12-12 08:28 ==
LOC: JP.ED 04:15
DX: I21.4 Non-ST elevation (NSTEMI) myocardial infarction (principal); I26.99 Other pulmonary embolism without acute cor pulmonale; R00.0 Tachycardia, unspecified; E66.9 Obesity, unspecified; Z68.42 Body mass index [BMI] 45.0-49.9, adult; Z88.1 Allergy status to other antibiotic agents; Z79.899 Other long term (current) drug therapy
CPT/HCPCS: 36415; 71275; 80053; 83880; 84484; 85025; 85379; 85610; 93005; 93010; 96365; 99285; A9270; J1644; J7030; J7050; Q9967

== ENCOUNTER 2020-09-09 03:56 | Emergency (ER) | payer MEDICARE, MEDICAID ==
--- NOTE | 2020-09-09 04:16 | EDM.PDOC ---
ED HPI GENERAL MEDICAL PROBLEM - General Chief Complaint: Respiratory Problem Stated Complaint: SHORTNESS OF BREATH Time Seen by Provider: 09/09/20 04:15 Source of Information: Reports: Patient, Old Records History Limitations: Reports: No Limitations - History of Present Illness INITIAL COMMENTS - FREE TEXT/NARRATIVE: 59 yo male here with SOB that began several hrs ago abruptly. Is on Xarelto, but is concerned about a blood clot. He has not noticed any new or worsening leg edema or calf pain. He denies CP, fever, vomiting, diarrhea or bloody stools. He has a 20 yr hx of smoking, but quit with his divorce sometime ago. Has a pHx of PE's. Did feel chilled at home this afternoon. No dysuria. Has a remote hx of a unilateral complete nephrectomy on one side and a partial nephrectomy on the other side for CA. Other CA hx as well. 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 (see below) (none) - Related Data Allergies Allergy/AdvReac Type Severity Reaction Status Date / Time clindamycin Allergy Hives Verified 12/12/19 04:34 Home Meds: Home Meds Levothyroxine Sodium [Synthroid] 300 mcg PO ACBREAKFAST 02/27/15 [History] Vitamin E 400 unit PO DAILY 06/11/15 [History] Rivaroxaban [Xarelto] 1 tab PO DAILY 09/09/20 [History] Past Medical History HEENT History: Reports: Impaired Vision Cardiovascular History: Reports: Blood Clots/VTE/DVT Respiratory History: Reports: PE Gastrointestinal History: Reports: Other (See Below) Other Gastrointestinal History: Pancreatic tumor Genitourinary History: Reports: Other (See Below) Other Genitourinary History: kidney canCer right nephrectomy 1991. Partial left nephrectomy Other Musculoskeletal History: dislocated right shoulder 1980 Neurological History: Reports: Neuropathy, Peripheral Endocrine/Metabolic History: Reports: Obesity/BMI 30+, Other (See Below) Other Endocrine/Metabolic History: thyroid cancer. lymphedema Oncologic (Cancer) History: Reports: Pancreatic, Renal, Thyroid, Other (See Below) Other Oncologic History: kidney Dermatologic History: Reports: Cellulitis - Infectious Disease History Infectious Disease History: Reports: Chicken Pox, Measles, Mumps - Past Surgical History GI Surgical History: Reports: Other (See Below) Other GI Surgeries/Procedures: splenectomy. Remove tail end of pancreas. Total nephrectomy and partial removal of another kidney for kidney cancer Dermatological Surgical History: Reports: Skin Graft Social & Family History - Family History Family Medical History: No Pertinent Family History - Caffeine Use Caffeine Use: Reports: Coffee, Soda ED ROS GENERAL - Review of Systems Review Of Systems: See Below Constitutional: Reports: No Symptoms HEENT: Reports: No Symptoms Respiratory: Reports: Shortness of Breath Cardiovascular: Reports: Edema (bilat leg edema L>R, not new) GI/Abdominal: Reports: No Symptoms : Reports: No Symptoms Musculoskeletal: Reports: No Symptoms Skin: Reports: No Symptoms Neurological: Reports: No Symptoms Psychiatric: Reports: No Symptoms ED EXAM, GENERAL - Physical Exam Exam: See Below Exam Limited By: No Limitations General Appearance: Alert, WD/WN, Mild Distress, Obese Eye Exam: Bilateral Eye: Normal Inspection Ears: Normal External Exam, Normal Canal, Hearing Grossly Normal Ear Exam: Bilateral Ear: Auricle Normal, Canal Normal Nose: Normal Inspection, No Blood Throat/Mouth: Normal Inspection, Normal Lips, Normal Oropharynx, Normal Voice, No Airway Compromise Head: Atraumatic, Normocephalic Neck: Normal Inspection Respiratory/Chest: No Respiratory Distress, Lungs Clear, No Accessory Muscle Use, Decreased Breath Sounds Cardiovascular: Regular Rate, Rhythm, Tachycardia. No: No Edema (pitting edema of both legs below the knees, L>R) Peripheral Pulses: 0: Dorsalis Pedis (L) GI/Abdominal: Normal Bowel Sounds, Soft, Non-Tender, No Distention Back Exam: Normal Inspection Extremities: Non-Tender, Pedal Edema (L>R). No: No Pedal Edema, Increased Warmth, Redness Neurological: Alert, Oriented, CN II-XII Intact, Normal Cognition, No Motor/Sensory Deficits Psychiatric: Normal Affect, Normal Mood Skin Exam: Warm, Dry, Intact, Normal Color, No Rash #1 Interpretation EKG Date: 09/09/20 Time: 04:10 Rhythm: NSR Rate (Beats/Min): 138 [place]: Normal P-Wave: Present QRS: Normal ST-T: Normal QT: Normal Comparison: Change From Previous EKG (Rate increase noted only from prior EKG. Likely old anterior and inferior FL's.) Course - Vital Signs Text/Narrative:: Dr. Kennedy consult @ 0336 Last Recorded V/S: Last Vital Signs Temp 38.2 C H 09/09/20 04:16 Pulse 140 H 09/09/20 05:23 Resp 25 H 09/09/20 05:23 BP 81/44 L 09/09/20 05:23 Pulse Ox 97 09/09/20 05:23 - Orders/Labs/Meds Orders: Active Orders 24 hr Category Date Time Status Cardiac Monitoring [RC] .As Directed Care 09/09/20 04:14 Active EKG Documentation Completion [RC] ASDIRECTED Care 09/09/20 04:14 Active Arroyo Catheter Insertion [Insert Urinary Catheter] [OM. Care 09/09/20 05:00 Ordered PC] Q24H Oxygen Therapy Adult [Oxygen Therapy, ED] [RC] Care 09/09/20 04:18 Active ASDIRECTED Urinary Catheter Assessment [RC] ASDIRECTED Care 09/09/20 04:48 Active Chest 1V Frontal [CR] Stat Exams 09/09/20 04:37 Taken Chest wo Cont [CT] Stat Exams 09/09/20 04:54 Ordered CORONAVIRUS COVID-19 RAPID [MOLEC] Routine Lab 09/09/20 04:59 Received CULTURE BLOOD [BC] Stat Lab 09/09/20 05:10 Received CULTURE BLOOD [BC] Stat Lab 09/09/20 05:30 Received UA W/MICROSCOPIC [URIN] Stat Lab 09/09/20 04:35 Ordered Magnesium Sulfate/Water [Magnesium Sulfate in Water 2 Med 09/09/20 04:57 Active GM/50 ML] 2 gm in 50 ml IV ONETIME Piperacillin/Tazobactam [Zosyn] 4.5 gm Med 09/09/20 04:53 Active Sodium Chloride 0.9% [Normal Saline] 100 ml IV ONETIME Sodium Chloride 0.9% [Saline Flush] Med 09/09/20 04:19 Active 10 ml FLUSH ASDIRECTED PRN Sodium Chloride 0.9% [Saline Flush] Med 09/09/20 04:33 Active 10 ml FLUSH ASDIRECTED PRN Vancomycin 2 gm Med 09/09/20 04:54 Active Sodium Chloride 0.9% [Normal Saline] 500 ml IV ONETIME Saline Lock Insert [OM.PC] Routine Oth 09/09/20 04:19 Ordered Saline Lock Insert [OM.PC] Routine Oth 09/09/20 04:33 Ordered EKG 12 Lead [EK] Routine Ther 09/09/20 04:14 Ordered Medication Orders Piperacillin Sod/Tazobactam (Sod 4.5 gm/ Sodium Chloride) 100 mls @ 100 mls/hr IV ONETIME ONE Stop: 09/09/20 05:52 Last Admin: 09/09/20 05:08 Dose: 100 mls/hr Documented by: JOVITA Vancomycin HCl 2 gm/ Sodium (Chloride) 500 mls @ 250 mls/hr IV ONETIME ONE Stop: 09/09/20 06:53 Last Admin: 09/09/20 05:25 Dose: 250 mls/hr Documented by: JOVITA Magnesium Sulfate (Magnesium Sulfate In Water 2 Gm/50 Ml) 2 gm in 50 mls @ 12.5 mls/hr IV ONETIME ONE Stop: 09/09/20 08:56 Last Admin: 09/09/20 05:14 Dose: 12.5 mls/hr Documented by: JOVITA Sodium Chloride (Sodium Chloride 0.9% 10 Ml Syringe) 10 ml FLUSH ASDIRECTED PRN PRN Reason: Keep Vein Open Last Admin: 09/09/20 04:35 Dose: 10 ml Documented by: JOVITA Sodium Chloride (Sodium Chloride 0.9% 10 Ml Syringe) 10 ml FLUSH ASDIRECTED PRN PRN Reason: Keep Vein Open Last Admin: 09/09/20 04:36 Dose: 10 ml Documented by: JOVITA Labs: Laboratory Tests 09/09/20 09/09/20 09/09/20 Range/Units 04:02 04:10 04:16 WBC 41.2 H* (4.5-11.0) K/uL RBC 5.22 (4.30-5.90) M/uL Hgb 14.4 (12.0-15.0) g/dL Hct 43.4 (40.0-54.0) % MCV 83 (80-98) fL MCH 28 (27-31) pg MCHC 33 (32-36) % Plt Count 302 (150-400) K/uL Add Manual Diff Yes Neutrophils % (Manual) 74 H (36-66) % Band Neutrophils % 18 H (5-11) % Lymphocytes % (Manual) 3 L (24-44) % Monocytes % (Manual) 2 (2-6) % Metamyelocytes % 3 % D-Dimer, Quantitative 1085.38 H (0.0-500.0) ng/mL Sodium 140 (140-148) mmol/L Potassium 4.5 (3.6-5.2) mmol/L Chloride 98 L (100-108) mmol/L Carbon Dioxide 23 (21-32) mmol/L Anion Gap 23.5 H (5.0-14.0) mmol/L BUN 29 H (7-18) mg/dL Creatinine 4.2 H* D (0.8-1.3) mg/dL Est Cr Clr Drug Dosing TNP Estimated GFR (MDRD) 15 L (>60) Glucose 93 (74-106) mg/dL Lactic Acid (0.4-2.0) mmol/L Calcium 8.4 L (8.5-10.1) mg/dL Magnesium (1.8-2.4) mg/dL Troponin I 0.032 (0.000-0.056) ng/mL 09/09/20 09/09/20 Range/Units 04:33 04:36 WBC (4.5-11.0) K/uL RBC (4.30-5.90) M/uL Hgb (12.0-15.0) g/dL Hct (40.0-54.0) % MCV (80-98) fL MCH (27-31) pg MCHC (32-36) % Plt Count (150-400) K/uL Add Manual Diff Neutrophils % (Manual) (36-66) % Band Neutrophils % (5-11) % Lymphocytes % (Manual) (24-44) % Monocytes % (Manual) (2-6) % Metamyelocytes % % D-Dimer, Quantitative (0.0-500.0) ng/mL Sodium (140-148) mmol/L Potassium (3.6-5.2) mmol/L Chloride (100-108) mmol/L Carbon Dioxide (21-32) mmol/L Anion Gap (5.0-14.0) mmol/L BUN (7-18) mg/dL Creatinine (0.8-1.3) mg/dL Est Cr Clr Drug Dosing Estimated GFR (MDRD) (>60) Glucose (74-106) mg/dL Lactic Acid 4.2 H (0.4-2.0) mmol/L Calcium (8.5-10.1) mg/dL Magnesium 0.9 L (1.8-2.4) mg/dL Troponin I (0.000-0.056) ng/mL Meds: Medications Generic Name Dose Route Start Last Admin Trade Name Freq PRN Reason Stop Dose Admin Piperacillin Sod/Tazobactam 100 mls @ 100 mls/hr 09/09/20 04:53 09/09/20 05:08 Sod 4.5 gm/ Sodium Chloride IV 09/09/20 05:52 100 mls/hr ONETIME ONE Administration Vancomycin HCl 2 gm/ Sodium 500 mls @ 250 mls/hr 09/09/20 04:54 09/09/20 05:25 Chloride IV 09/09/20 06:53 250 mls/hr ONETIME ONE Administration Magnesium Sulfate 2 gm in 50 mls @ 12.5 mls/hr 09/09/20 04:57 09/09/20 05:14 Magnesium Sulfate In Water 2 Gm/50 Ml IV 09/09/20 08:56 12.5 mls/hr ONETIME ONE Administration Sodium Chloride 10 ml 09/09/20 04:19 09/09/20 04:35 Sodium Chloride 0.9% 10 Ml Syringe FLUSH 10 ml ASDIRECTED PRN Administration Keep Vein Open Sodium Chloride 10 ml 09/09/20 04:33 09/09/20 04:36 Sodium Chloride 0.9% 10 Ml Syringe FLUSH 10 ml ASDIRECTED PRN Administration Keep Vein Open Discontinued Medications Generic Name Dose Route Start Last Admin Trade Name Freq PRN Reason Stop Dose Admin Acetaminophen 1,000 mg 09/09/20 05:10 09/09/20 05:13 Acetaminophen 500 Mg Tab PO 09/09/20 05:11 1,000 mg ONETIME ONE Administration Sodium Chloride 1,000 mls @ 1,000 mls/hr 09/09/20 04:32 09/09/20 04:35 Normal Saline IV 09/09/20 05:31 1,000 mls/hr .BOLUS ONE Administration Sodium Chloride 500 mls @ 1,000 mls/hr 09/09/20 04:56 04/19/21 05:06 Normal Saline IV 09/09/20 05:25 1,000 mls/hr .BOLUS ONE Administration - Radiology Interpretation Free Text/Narrative:: CXR-neg CT chest without contrast-results pending, images pushed through to [facility] CT Results Date: 09/09/20 Departure - Departure Time of Disposition: 06:05 Disposition: DC/Tfer to Acute Hospital 02 Condition: Critical Clinical Impression: Septic shock, Hypomagnesemia, Anuria - Discharge Information *PRESCRIPTION DRUG MONITORING PROGRAM REVIEWED*: Not Applicable *COPY OF PRESCRIPTION DRUG MONITORING REPORT IN PATIENT TYE: Not Applicable Referrals: Genaro Hassan BIS[employer] FINISHER [Primary Care Provider] - Forms: ED Department Discharge Sepsis Event Note (ED) - Focused Exam Vital Signs: Vital Signs Temp Pulse Resp BP Pulse Ox 09/09/20 05:23 140 H 25 H 81/44 L 97 09/09/20 05:08 135 H 38 H 96/31 L 97 09/09/20 04:48 135 H 28 H 97/34 L 97 09/09/20 04:40 132 H 18 83/37 L 98 09/09/20 04:37 135 H 28 H 83/37 L 97 09/09/20 04:16 38.2 C H 144 H 22 H 96/49 L 98 - My Orders Last 24 Hours: My Active Orders 09/09/20 04:14 Cardiac Monitoring [RC] .As Directed EKG Documentation Completion [RC] ASDIRECTED EKG 12 Lead [EK] Routine 09/09/20 04:18 Oxygen Therapy Adult [Oxygen Therapy, ED] [RC] ASDIRECTED 09/09/20 04:19 Sodium Chloride 0.9% [Saline Flush] 10 ml FLUSH ASDIRECTED PRN Saline Lock Insert [OM.PC] Routine 09/09/20 04:33 Sodium Chloride 0.9% [Saline Flush] 10 ml FLUSH ASDIRECTED PRN Saline Lock Insert [OM.PC] Routine 09/09/20 04:35 UA W/MICROSCOPIC [URIN] Stat 09/09/20 04:37 Chest 1V Frontal [CR] Stat 09/09/20 04:48 Urinary Catheter Assessment [RC] ASDIRECTED 09/09/20 04:53 Piperacillin/Tazobactam [Zosyn] 4.5 gm Sodium Chloride 0.9% [Normal Saline] 100 ml IV ONETIME 09/09/20 04:54 Chest wo Cont [CT] Stat Vancomycin 2 gm Sodium Chloride 0.9% [Normal Saline] 500 ml IV ONETIME 09/09/20 04:57 Magnesium Sulfate/Water [Magnesium Sulfate in Water 2 GM/50 ML] 2 gm in 50 ml IV ONETIME 09/09/20 05:00 Arroyo Catheter Insertion [Insert Urinary Catheter] [OM.PC] Q24H 09/09/20 05:10 CULTURE BLOOD [BC] Stat 09/09/20 05:30 CULTURE BLOOD [BC] Stat - Assessment/Plan Last 24 Hours: My Active Orders 09/09/20 04:14 Cardiac Monitoring [RC] .As Directed EKG Documentation Completion [RC] ASDIRECTED EKG 12 Lead [EK] Routine 09/09/20 04:18 Oxygen Therapy Adult [Oxygen Therapy, ED] [RC] ASDIRECTED 09/09/20 04:19 Sodium Chloride 0.9% [Saline Flush] 10 ml FLUSH ASDIRECTED PRN Saline Lock Insert [OM.PC] Routine 09/09/20 04:33 Sodium Chloride 0.9% [Saline Flush] 10 ml FLUSH ASDIRECTED PRN Saline Lock Insert [OM.PC] Routine 09/09/20 04:35 UA W/MICROSCOPIC [URIN] Stat 09/09/20 04:37 Chest 1V Frontal [CR] Stat 09/09/20 04:48 Urinary Catheter Assessment [RC] ASDIRECTED 09/09/20 04:53 Piperacillin/Tazobactam [Zosyn] 4.5 gm Sodium Chloride 0.9% [Normal Saline] 100 ml IV ONETIME 09/09/20 04:54 Chest wo Cont [CT] Stat Vancomycin 2 gm Sodium Chloride 0.9% [Normal Saline] 500 ml IV ONETIME 09/09/20 04:57 Magnesium Sulfate/Water [Magnesium Sulfate in Water 2 GM/50 ML] 2 gm in 50 ml IV ONETIME 09/09/20 05:00 Arroyo Catheter Insertion [Insert Urinary Catheter] [OM.PC] Q24H 09/09/20 05:10 CULTURE BLOOD [BC] Stat 09/09/20 05:30 CULTURE BLOOD [BC] Stat
[2020-09-09] MEDS ORDERED: Sodium Chloride 0.9% 10 ML Syringe FLUSH PRN ×2 (04:19→04:33)
[2020-09-09] MEDS ORDERED: Sodium Chloride 0.9% 1,000 ML IV ONE (04:32)
[2020-09-09] MEDS ORDERED: Piperacillin/Tazobactam 4.5 GM in Sodium Chloride 0.9% 100 ML IV ONE (04:53)
[2020-09-09] MEDS ORDERED: Vancomycin 2 GM in Sodium Chloride 0.9% 500 ML IV ONE (04:54)
[2020-09-09] MEDS ORDERED: Sodium Chloride 0.9% 500 ML IV ONE (04:56)
[2020-09-09] MEDS ORDERED: Magnesium Sulfate/Water 2 GM/50 ML BAG IV ONE (04:57)
[2020-09-09] MEDS ORDERED: Acetaminophen 500 MG Tab PO ONE (05:10)
[2020-09-09 05:24] VITALS: BP 81/44; PULSE 140
[2020-09-09] MEDS ORDERED: Sodium Chloride 0.9% 1,000 ML IV SCH (06:15)
--- NOTE | 2020-09-09 06:59 | CRLCT ---
INDICATION: Short of breath. Tachycardia. History pulmonary embolism. History of a cancer. TECHNIQUE: Multiple axial images were obtained from the apices to the diaphragm without contrast. Sagittal and coronal re-formatted images were obtained. COMPARISON: 07/02/2020. FINDINGS: There are emphysematous changes in the upper lobes bilaterally unchanged from the previous study. There is scarring in the right upper lobe anteriorly. There is atelectasis in the dependent portion lungs. There is scarring in the lung bases. The lungs otherwise are clear. There is no pleural effusion. The ascending thoracic aorta is dilated measuring up to 4.4 cm in AP dimension, unchanged from the previous study. There are mildly prominent central pulmonary is unchanged. There is no pericardial effusion. There is no axillary, mediastinal or hilar adenopathy. There are degenerative changes in the spine. The patient is post splenectomy and distal pancreatectomy. There are multiple splenules in the left upper abdomen. There is a stable soft tissue fullness in the left adrenal gland. The liver is diffuse decreased attenuation consistent with fatty infiltration of the liver. There are stable cysts in the left lobe of the liver. There are stable surgical clips in the right upper abdomen retroperitoneal space. IMPRESSION: 1. No acute abnormality on CT scan chest without contrast. 2. Stable dilation of the ascending thoracic aorta measuring up to 4.4 cm in diameter. 3. Emphysematous changes in the upper lobes. 4. Status post splenectomy and distal pancreatectomy. There is no significant discrepancy the preliminary report given by Rubia Watkins MD on 09/09/2020 at 06:57 hours. Please note that all CT scans at this facility use dose modulation, iterative reconstruction, and/or weight-based dosing when appropriate to reduce radiation dose to as low as reasonably achievable. Dictated by Chemo Zarate MD @ Sep 10 2020 12:18PM Signed by Dr. Chemo Zarate @ Sep 10 2020 12:29PM
--- NOTE | 2020-09-09 10:32 | CR ---
CHEST: Portable 09/09/2020 at 4:51 AM CLINICAL HISTORY:SOB COMPARISON:CT chest 07/02/2020 FINDINGS: The heart size, pulmonary vascularity and hilar structures are normal. No infiltrate effusion or pneumothorax is seen. There are atherosclerotic changes in the aorta. IMPRESSION: No acute cardiopulmonary process.
== END 2020-09-09 06:32 ==
LOC: JP.ED 03:56
DX: A41.9 Sepsis, unspecified organism (principal); R65.21 Severe sepsis with septic shock; E83.42 Hypomagnesemia; R34 Anuria and oliguria; G62.9 Polyneuropathy, unspecified; E66.9 Obesity, unspecified; Z68.42 Body mass index [BMI] 45.0-49.9, adult; Z79.01 Long term (current) use of anticoagulants; Z88.1 Allergy status to other antibiotic agents; Z86.711 Personal history of pulmonary embolism; Z20.822 Contact with and (suspected) exposure to COVID-19
CPT/HCPCS: 36415; 51702; 71045; 71250; 80048; 81001; 83605; 83735; 84484; 85025; 85379; 87040; 93005; 96365; 96368; 99285; A9270; J2543; J3370; J3475; J7030; J7040; U0002; 99284